=== PATIENT | female | born 1965 | race Caucasian/White ===

== ENCOUNTER 2020-06-12 16:01 | Outpatient (CLI) | payer OTHER, SELFPAY ==
--- NOTE | 2020-06-12 11:15 | DI.RAD_ITS ---
EXAM: XR KNEE RT 2V AP,LAT CLINICAL HISTORY: pain. TECHNIQUE: 2D digital imaging was performed. COMPARISON: No previous for comparison. FINDINGS: BONES: No acute fracture is present. No bony destructive lesion is seen. There is a question of an os teochondroma involving the proximal fibula. JOINTS: The knee is normally aligned. Small joint effusion is present. SOFT TISSUE: Normal. IMPRESSION: No acute abnormality. Small joint effusion. DATA REPOSITORY: RADIATION DOSE DELIVERED:
== END 2020-06-12 16:21 ==
PROVIDERS: PCP Internal Medicine; Visit Provider Orthopaedic Surgery
DX: M25.461 Effusion, right knee (principal); M25.561 Pain in right knee
CPT/HCPCS: 73560

== ENCOUNTER 2021-07-03 09:15 | Outpatient (CLI) | payer OTHER, SELFPAY ==
--- NOTE | 2021-07-03 10:40 | DI.MRI_ITS ---
Exam(s) MR LOWER JOINT RT WO EXAM: MR LOWER JOINT RT WO CLINICAL HISTORY: PAIN, INTERNAL DERANGEMENT RT KNEE, M23.91 TECHNIQUE: Multiplanar multisequence MRI of the knee was performed. COMPARISON: MR MRI L LOWER JOINT WO CONT from 12/14/2013 CR XR KNEE RT 2V AP,LAT from 06/12/2020 FINDINGS: EFFUSION: There is a small joint effusion. There is no Bermudez cyst in the popliteal fossa MARROW:There is no evidence of fracture, prominent bone contusion, nor osteochondral defects.. There are no significant osseous lesions. PATELLOFEMORAL COMPARTMENT: The quadriceps tendon is intact. The patellar ligament is intact. There is mild uniform thinning of the retropatellar cartilage and there is signal abnormality in the retropatellar cartilage inferiorly, more so over the lateral facet. No prominent signal abnormality in the posterior patella.There is no intraosseous signal to suggest recent patellar dislocation. Ther e are no patellar retinacular tears. CRUCIATE LIGAMENTS: The anterior cruciate ligament is intact.The posterior cruciate ligament is intac t. MEDIAL COMPARTMENT/MEDIAL MENISCUS: There is an undersurface tear in the outer 3rd of the posterior h orn of the medial meniscus. There is lateral extrusion of part of the torn meniscus by approximately 3 millimeters. There is, however, no descent into the para tibial gutter. No meniscocapsular separ ation. There are small over and underlying osteophytes in the outer aspects of the medial femoral co ndyle and subjacent tibial plateau. There is some mild-moderate cartilage thinning over this weight- bearing region of the medial femoral condyle. There is very mild subarticular bone edema in the femo ral condyle and subjacent medial tibial plateau. There are no osteochondral defects. The anterior horn of the medial meniscus appears intact. MEDIAL COLLATERAL LIGAMENT: There is thin amount of fluid between the deep and superficial components of the MCL but no high-grade tear of this structure. LATERAL COMPARTMENT/LATERAL MENISCUS: There is mild signal abnormality in the inferior aspect of the root of the posterior horn the lateral meniscus, probably myxoid degeneration (more so than an actual tear at this level). The anterior horn is intact. There is no evidence of meniscal extrusion nor i ntrusion.There are no chondral defects, osteochondral defects, subarticular marrow edema, nor osteoph ytes evident. ILIOTIBIAL BAND: Intact LATERAL COLLATERAL LIGAMENT COMPLEX: The fibular collateral ligament is intact. The biceps femoris t endon is intact.Mild fluid seen within the popliteus tendon sheath but there is no distinct tear of t his component of the LCLC. IMPRESSION: 1. There is a tear of the posterior horn of the medial meniscus as described above. There is an [place] ent of extrusion part of the torn meniscus but without descent into the para meniscal gutter, promine nt meniscocapsular separation, nor evidence of degenerative meniscal cyst formation. There is some o verlying mild-moderate cartilage thinning and very mild subarticular bone edema in the overlying medi al femoral condyle (as well as in the subjacent tibial plateau). There are no osteochondral defects. The anterior horn of the medial meniscus appears intact. Some myxoid degeneration noted at the lev el of the root of the posterior horn of the lateral meniscus but no true lateral meniscal tears nor c hondral defects in the lateral compartment and no subarticular edema nor osteophytes in the lateral c ompartment. 2. The cruciate and collateral ligaments are intact. There is a small amount of fluid in the poplite us tendon sheath but no tear of this tendon. 3. There is thinning of the retropatellar cartilage, more so over the lateral facet. No intraosseous edema seen in the patella. No osteochondral defect evident at this level. 4. Small joint effusion. No Bermudez cyst. DATA REPOSITORY:
== END 2021-07-03 09:35 ==
LOC: DI 09:17
PROVIDERS: PCP Internal Medicine; Visit Provider Student in an Organized Health Care Education/Training Program
DX: M25.561 Pain in right knee (principal); M25.461 Effusion, right knee; S83.241A Other tear of medial meniscus, current injury, right knee, initial encounter; M23.8X1 Other internal derangements of right knee
CPT/HCPCS: 73721

== ENCOUNTER 2021-12-22 09:16 | Day surgery (SDC) | payer OTHER, SELFPAY ==
--- NOTE | 2021-12-22 06:32 | COLE_ITS ---
Colonoscopy Report Date of procedure: 12/22/21 Pre-op diagnosis general: Hx of polyps, Colon Cancer Screening Post-op diagnosis procedure note: other (polyps and diverticulosis) Procedure: Colonoscopy with polypectomy Surgeon: Katey Orozco Anesthesia Type: General:No Airway Estimated blood loss (mL): 3 Pathology: other (ascending colon polyps) Complications: None Disposition: same day Indications: The patient is here for Colonoscopy pre-op. Her last screening was in 2018, which was remarkable for tubulovillious adenoma. She reports a distant family history of colon cancer in her Paternal Grandfather and Paternal Uncle.??She has not had any bowel habit changes. -Discussed colonoscopy bowel prep as well as the procedure. Discussed possible complications of the procedure to include bleeding, pain, perforation, missed small lesion/polyp, sore throat, aspiration and adverse reaction to the medications. Questions were answered to patient?s satisfaction. No guarantees were implied or given.? Prep: Miralax/Dulcolax Procedure Start Time: 10:03 Procedure End Time: 10:25 Retraction Time: 15 minutes Findings: 2 small polyps mild diverticulosis Procedure Description: After informed consent was obtained the patient was taken to the procedure ro om and placed in a left decubitous position. Monitors were applied and a time out was done. The patients name, date of , procedure, allergies to medications and metal in their body was reviewed. The patient was then sedated. Once sedated and comfortable a rectal exam was done. External exam was normal. Internal exam revealed a normal sphincter tone and no palpable masses. The scope was then introduced and retro-flexed. No internal hemorrhoids, polyps or masses were identified on retro-flexion. The scope was then advanced to the cecum without difficulty. The ileocecal vlave and appendiceal orifice were identified. The prep was adequate. The scope was then slowly retracted over 15 minutes back into the rectum. Polyps were removed with cold forceps in the ascending colon x2. There was mild sigmoid diverticulosis noted. The scope was removed and the patient was woken up and taken back to Same day surgery in stable condition. The patient tolerated the procedure well and there were no immediate complications. Follow up: The patient should follow up in 5 years unless they develop changes in bowel habits or other new gastrointestinal complaints.
--- NOTE | 2021-12-22 06:33 | W.PM.DSUDISC ---
Discharge Plan Disposition Patient Disposition: HOME Condition: Good Discharge Details Reason For Visit: colonoscopy Attending Provider: Katey Orozco Primary Care Provider: Nataliia Coyne Home Meds and New Rx's Prescriptions: Continued albuterol sulfate [ProAir HFA] 90 mcg/actuation HFA aerosol inhaler 2 puff Inhalation Q4H PRN 30 Days Qty: 2 6RF Hold Instructions: Home Medication placed on hold at Doctor's office Rx Instructions: Changed from xopenex due to insurance formulary fluticasone propion-salmeterol [Advair Diskus] 250-50 mcg/dose blister with device 1 ea Inhalation BID Qty: 3 3RF Hold Instructions: Home Medication placed on hold at Doctor's office mometasone [Nasonex] 50 mcg/actuation spray,non-aerosol 2 spray NS BID Qty: 3 3RF Hold Instructions: Home Medication placed on hold at Doctor's office montelukast [Singulair] 10 mg tablet 10 mg PO DAILY Qty: 90 3RF Hold Instructions: Home Medication placed on hold at Doctor's office desloratadine [Clarinex] 5 mg tablet 5 mg PO DAILY PRN (Reason: allergies) Qty: 30 11RF budesonide-formoterol [Symbicort] 80-4.5 mcg/actuation HFA aerosol inhaler 2 puff inhalation BID Qty: 3 3RF melatonin 3 mg tablet 3 mg PO HS 0RF mylanta suspension PO PRN0RF naproxen sodium [Aleve] 220 MG tablet 220 mg PO DAILY PRN0RF Rx Instructions: for knee pain 1-2 x's weekly cgc Discontinued polyethylene glycol 3350 17 gram/dose powder 238 g PO ONCE Qty: 238 0RF Rx Instructions: take per colonoscopy instructions bisacodyl [Dulcolax (bisacodyl)] 5 mg tablet,delayed release (DR/EC) 5 mg PO ONCE Qty: 4 0RF Rx Instructions: take per colonoscopy instructions Discharge Instructions Instructions: Colorectal Polyps (DC), Diverticulosis (DC) Additional Instructions: Findings: 2 small polyps diverticulosis Follow up: 5 years Please call if you develop: fevers >101.5 Nausea or Vomiting Abdominal pain that is not transient Rectal bleeding that is more then a tbsp A hard abdomen and inability to pass gas DAY SURGERY UNIT POST ENDOSCOPY INSTRUCTIONS Instructions for everyone who is given Anesthesia: For your safety, please do the following for the next 24 Hours: a. Do not drive or operate dangerous equipment b. Do not drink alcohol beverages or use any recreational drugs for the first 24 hours or while taking pain medications. The medications in your body may have a reaction that can be dangerous. c. Do not make any important decisions or sign any important papers 1. Generally there are no restrictions on your activity after a day or so has gone by, but you may feel a bit fatigued for a few days. 2. After you arrive home you may have a light meal and return to a normal diet as you can tolerate it without feeling sick to your stomach. 3. After surgery, you may feel pain or discomfort. This should be only transient, but if it persists please contact your doctor. 4. If there are any questions regarding the findings of your procedure, please feel free to contact your doctor. 6. If you are unable to contact your doctor with a problem, contact the hospital at [phone]. 7. Continue all your regular medications unless directed otherwise. I understand the above instructions and have no questions. Signature of Patient or Responsible Adult Escort Date/Time Name of Responsible Adult Escort Signature of Nurse Date/Time Activity:: Activity as Tolerated Diet:: high fiber diet Discharge Orders Discharge Orders: Discharge Order (Routine); Ordered 12/22/21 Ordered By: Katey Orozco
[2021-12-22 09:27] VITALS: BP 137/93; PULSE 77; RESP 18; TEMP 36.6; O2SAT 95
[2021-12-22] MEDS: Lactated Ringers 1,000 ML 80 ML IV (09:34)
[2021-12-22 09:43] VITALS: BMI 43.5
--- NOTE | 2021-12-22 09:43 | W.ANESPRE ---
General Info Date of Service Date Performed: 12/22/21 Height: 5 ft 6.14 in Weight: 122.9 kg Body Mass Index (BMI): 43.5 Surgical Procedure: Operation Date: 12/22/21 09:50 Proposed Procedure Side Surgeon p Colonoscopy Katey Orozco MD Meds Allergies and Home Medications Allergies Allergy/AdvReac Type Severity Reaction Status Date / Time ropinirole AdvReac Intermediate Nausea Verified 12/22/21 09:23 hydrocodone [Hydrocodone] AdvReac Unknown itching Verified 12/22/21 09:23 Home Medication Medication Instructions Recorded naproxen sodium 220 mg tablet 220 mg PO DAILY PRN 11/20/13 (Aleve) melatonin 3 mg tablet 3 mg PO HS 05/13/21 mylanta PO PRN 05/13/21 albuterol sulfate 90 mcg/actuation 2 puff INHALATION Q4H PRN 30 Days 05/21/21 aerosol inhaler (ProAir HFA) #2 inhaler budesonide-formoterol HFA 80 2 puff INHALATION BID #3 units 05/21/21 mcg-4.5 mcg/actuation aerosol inhaler (Symbicort) desloratadine 5 mg tablet 5 mg PO DAILY PRN #30 tab 05/21/21 (Clarinex) fluticasone 250 mcg-salmeterol 50 1 ea INHALATION BID #3 units 05/21/21 mcg/dose blistr powdr for inhalation (Advair Diskus) mometasone 50 mcg/actuation nasal 2 spray NS BID #3 units 05/21/21 spray (Nasonex) montelukast 10 mg tablet 10 mg PO DAILY #90 tab 05/21/21 (Singulair) bisacodyl 5 mg tablet,delayed 5 mg PO ONCE #4 tab 12/12/21 release (Dulcolax (bisacodyl)) polyethylene glycol 3350 17 238 g PO ONCE #238 g 12/12/21 gram/dose oral powder Current Visit Medications: Current Medications Generic Name Dose Route Start Last Admin Trade Name Freq PRN Reason Stop Dose Admin Hyoscyamine Sulfate 0.125 mg 12/22/21 06:34 Hyoscyamine 0.125 Mg Sl/Oral/Chew SL DIRECTED PRN Ringer's Solution 1,000 mls @ 80 mls/hr 12/22/21 06:00 12/22/21 09:34 IV 01/18/22 23:59 80 mls/hr INFUSION PALAK Administration IV Miscellaneous Supplies 1 each 12/22/21 06:00 Iv Access IV 01/18/22 23:59 DIRECTED PALAK Ondansetron HCl 4 mg 12/22/21 06:34 Ondansetron 4 Mg/2 Ml Vial IVP Q4H PRN PRN Nausea / Vomiting Sodium Chloride 0 ml 12/22/21 06:00 Normal Saline Flush 10 Ml Syr IV 01/18/22 23:59 PRN PRN Sodium Chloride 0 ml 12/22/21 06:00 Normal Saline 10 Ml Vial IJ 01/18/22 23:59 DIRECTED PRN Sterile Water 0 ml 12/22/21 06:00 Water,Injection,Sterile 10 Ml Vial IJ 01/18/22 23:59 DIRECTED PRN PFSH Active Problems Active Problems: Problem Status Onset Code Asthma 12/20/12 J45.909 Family history of diabetes mellitus 09/25/15 Z83.3 Impaired fasting blood sugar 09/25/15 R73.01 Iron deficiency 09/25/15 E61.1 Non-seasonal allergic rhinitis 01/19/18 J30.89 Obesity 08/29/13 E66.9 Obstructive sleep apnea syndrome 08/29/13 G47.33 Restless legs 01/02/14 G25.81 Tubulovillous adenoma of colon 04/08/18 D12.6 Knee pain, right M25.561 Elevated blood pressure reading without diagnosis of hypertension R03.0 Internal derangement of right knee M23.91 Complex tear of medial meniscus of right knee as current injury S83.231A Medical History Medical History Asthma Iron deficiency Non-seasonal allergic rhinitis Obesity (BMI 30-39.9) GEETHA (obstructive sleep apnea) Restless legs Surgical History Surgical History Colonoscopy - [facility] (04/08/18) H/O arthroscopic knee surgery Tobacco Smoking/Tobacco Use Status: Never Second hand exposure: No Alcohol Alcohol Intake: current Alcohol intake frequency: holidays/special occasions only Alcohol type: wine Substance Use Substance use: Never Vital Signs and Lab Results Vital Signs Most Recent Vital Signs in EMR: Most Recent Vital Signs Temp Pulse Resp BP Pulse Ox 36.6 C 77 18 137/93 H 95 12/22/21 09:27 12/22/21 09:27 12/22/21 09:27 12/22/21 09:27 12/22/21 09:27 Lab Results Blood Type / Crossmatch: No Data to Display Complete Blood Count: No Data to Display Complete Metabolic Panel: No Data to Display Liver Function Panel: No Data to Display Coagulation Panel: No Data to Display Cardiac Panel: No Data to Display Arterial Blood Gas: No Data to Display Venous Blood Gas: No Data to Display Pancreas Panel: No Data to Display Thyroid Panel: No Data to Display Infectious Disease: No Data to Display Blood Cultures: No Data to Display Toxicology Panel: No Data to Display Anesthesia Assessment and Plan Anesthesia History Personal History: No History of Anesthesia Complications Family History: No Family History of Anesthesia Complications Exercise Tolerance Exercise Tolerance: Metabolic Equivalents>4 Pertinent Negatives Pertinent Negatives: No Symptoms of GERD, No Major Cardiovascular Symptoms or Complaints and No History of CVA/TIA Cardiac & Pulmonary Exam Cardiac Exam: Normal S1/S2 Heart Sounds Pulmonary Exam: Clear Bilateral Breath Sounds Cardiac and Pulmonary Comment:: Has not used rescue inhaler in 2-3 months. Mainly for exercise. GEETHA: elevates bed about 3inches per patient and states does not use or need CPAP Implantable Cardiac Device Does patient have a Pacemaker or an ICD?: No Airway Exam Known Difficult Airway: No Mallampati Class: 3 Mouth Opening: Normal (> 3cm) Thyromental Distance: Greater than 3 cm Neck Range of Motion: Full ROM Neck Circumference: Normal Teeth Condition: Normal Dentition ASA Classification ASA Score: ASA 3 Emergency Case?: No NPO Status NPO Status: NPO Clears >2 hours, Solids >8 hours Anesthesia Plan Resuscitation Status: Full Code Anesthesia Technique: General Anesthesia Airway Planned: Natural Airway Monitors Used: Standard Monitors
--- NOTE | 2021-12-22 10:12 | BOWEL_PTH ---
PATIENT: Trish Conroy LOC: [facility] U#:[id number] AGE/SX: 56/F ROOM: RE12/22/[address]: Katey Orozco MD : [id number] BED: DIS: 12/22/2021 SPEC #: [id number] RECD: 12/22/21 12:57 STATUS: SUMAN REQ #: [id number] RAY: 12/22/21 10:[address]: Katey Orozco DEPT: Surgical Specimen RECD BY: Madisyn Saul ENTERED: 12/22/21 12:57 SP TYPE: Bowel OTHR DR: Nataliia Coyne MD Tissues: 1 - BIOPSY BOWEL Procedures: GROSS AND MICRO LEVEL 4 Comments: [id number]
[2021-12-22 10:46] VITALS: BP 119/76; PULSE 76; RESP 17; TEMP 36.6; O2SAT 94
[2021-12-22 10:56] VITALS: BP 132/88; PULSE 73; RESP 17; TEMP 36.3; O2SAT 95
--- NOTE | 2021-12-22 13:37 | W.ANESPOSTOP ---
Postoperative Evaluation Date, Time and Location Date Performed: 12/22/21 Time Performed: 10:35 Patient Location: Day Surgery Unit Vital Signs Most Recent Imported Vital Signs: Most Recent Vital Signs Temp Pulse Resp BP Pulse Ox 36.3 C L 73 17 132/88 95 12/22/21 10:56 12/22/21 10:56 12/22/21 10:56 12/22/21 10:56 12/22/21 10:56 Pain Score Most Recent Pain Score: Most Recent Pain Score Pain Level 0 12/22/21 10:56 Assessment Mental Status: Awake (Alert & Oriented to Patient Baseline) Airway and Respiratory Function: Patent airway with normal (patient baseline) respiratory exam Cardiovascular Function: Hemodynamically Stable Hydration Status: Adequately Hydrated Nausea & Vomiting: No Nausea or Vomiting Pain: Pt. Denies Any Pain Peripheral Nerve Block: Patient did not receive a nerve block
== END 2021-12-22 11:11 | disposition home or self-care (01) ==
LOC: SUR 09:16
PROVIDERS: PCP Internal Medicine; Visit Provider Surgery
PROC: 0DJD8ZZ Inspection of Lower Intestinal Tract, Via Natural or Artificial Opening Endoscopic (ICD-10-PCS; CPT 45378; principal; 2021-12-22 09:45)
DX: Z12.11 Encounter for screening for malignant neoplasm of colon (principal); K63.5 Polyp of colon; K57.30 Diverticulosis of large intestine without perforation or abscess without bleeding; J45.909 Unspecified asthma, uncomplicated; G47.33 Obstructive sleep apnea (adult) (pediatric)
CPT/HCPCS: 45380; 88305; J2001

== ENCOUNTER 2022-02-27 16:19 | Outpatient (CLI) | payer OTHER, SELFPAY ==
[2022-02-27 16:55] LABS: Anion Gap 6.6 mmol/L (3-11); BUN 15 mg/dL (7-18); CO2 27.4 mmol/L (21.0-32.0); CREATININE 0.7 mg/dL (0.55-1.02); Calcium 8.4 mg/dL (8.5-10.1); Chloride 107 mmol/L (98-107); Glucose 125 mg/dL (74-106); Potassium 3.5 mmol/L (3.5-5.1); Sodium 141 mmol/L (136-145)
== END 2022-02-27 16:20 | disposition home or self-care (01) ==
LOC: LBO 16:19
PROVIDERS: PCP Internal Medicine; Visit Provider Student in an Organized Health Care Education/Training Program
DX: U07.1 COVID-19 (principal)
CPT/HCPCS: 36415; 80048

== ENCOUNTER → 2023-07-13 00:44 | Outpatient (CLI) | payer BC, SELFPAY ==
--- NOTE | 2023-07-13 08:15 | DI.RAD_ITS ---
Exam(s) XR SHOULDER LT COMPLETE 2+V EXAM: XR SHOULDER LT COMPLETE 2+V CLINICAL HISTORY: ? SHOULDER ARTHRITIS, DELTOID BURSITIS, M75.50. TECHNIQUE: 2D digital imaging was performed. Three views. COMPARISON: No exams were available for comparison FINDINGS: BONES: No acute fracture is present. No bony destructive lesion is seen. JOINTS: No dislocation present. Minimal spurring at acromion. Mild spurring at the glenoid and jaqueline ral head. Glenohumeral joint space is maintained. SOFT TISSUE: No tendon or joint space calcifications. IMPRESSION: mild degenerative changes. DATA REPOSITORY: RADIATION DOSE DELIVERED:
== END ==
PROVIDERS: PCP Family Medicine; Visit Provider Family Medicine
DX: M75.52 Bursitis of left shoulder (principal)
CPT/HCPCS: 73030

== ENCOUNTER 2024-01-13 05:11 | Outpatient (CLI) | payer BC, SELFPAY ==
[2024-01-13 07:50] LABS: ALT 34 U/L (14-59); AST 12 U/L (15-37); Albumin 3.6 g/dL (3.4-5.0); Alkaline Phosphatase 68 U/L (46-116); Anion Gap 8.4 mmol/L (3-11); BUN 20 mg/dL (7-18); Bilirubin, Total 0.5 mg/dL (0.2-1.0); CO2 25.6 mmol/L (21.0-32.0); CREATININE 0.8 mg/dL (0.55-1.02); Calcium 8.6 mg/dL (8.5-10.1); Calculated LDL 145 mg/dL (<100); Chloride 106 mmol/L (98-107); Cholesterol 233 mg/dL (<200); Estimated GFR 85.89 (mL/min/1.73m2); Glucose 104 mg/dL (74-106); HDL Cholesterol 61 mg/dL (40-60); Potassium 3.8 mmol/L (3.5-5.1); Sodium 140 mmol/L (136-145); Total Protein 6.9 g/dL (6.4-8.2); Triglyceride 139 mg/dL (<150)
[2024-01-13 21:36] LABS: Hepatitis C Ab w Rflx HCV PCR Negative (Negative)
[2024-01-13 21:40] LABS: HIV-1/2 Ag & Ab Screen Negative (Negative)
== END 2024-01-13 05:12 | disposition home or self-care (01) ==
LOC: LBO 05:11
PROVIDERS: Absent Provider Family Medicine; PCP Family Medicine; Referring Provider Family Medicine; Visit Provider Family Medicine
DX: I10 Essential (primary) hypertension (principal); Z11.3 Encounter for screening for infections with a predominantly sexual mode of transmission
CPT/HCPCS: 36415; 80053; 80061; 86803; 87389

== ENCOUNTER 2024-01-18 15:49 | Outpatient (CLI) | payer BC, SELFPAY ==
--- NOTE | 2024-01-18 14:30 | DI.RAD_ITS ---
Exam(s) XR HUMERUS LT EXAM: XR HUMERUS LT CLINICAL HISTORY: persistent pain. TECHNIQUE: 2D digital imaging was performed. Two views. COMPARISON: CR XR SHOULDER LT COMPLETE 2+V from 07/13/2023 FINDINGS: BONES: No acute fracture is present. No bony destructive lesion is seen. Bones appear normally clothing examiner alized. Joints: Stable degenerative changes at the AC joint and glenohumeral joint. The elbow is unremarkabl e. SOFT TISSUE: Normal. IMPRESSION: Stable degenerative changes of the AC joint and glenohumeral joint. DATA REPOSITORY: RADIATION DOSE DELIVERED:
== END 2024-01-18 15:50 | disposition home or self-care (01) ==
LOC: DIORS 15:50
PROVIDERS: PCP Family Medicine; Visit Provider Student in an Organized Health Care Education/Training Program
DX: M79.602 Pain in left arm (principal)
CPT/HCPCS: 73060

== ENCOUNTER → 2024-02-07 02:03 | Outpatient (CLI) | payer BC, SELFPAY ==
--- NOTE | 2024-02-07 07:00 | DI.MRI_ITS ---
Exam(s) MR UPPER EXTREMITY LT WO EXAM: MR UPPER EXTREMITY LT WO CLINICAL HISTORY: trigger point L humerus,lt arm pain,M79.602 TECHNIQUE: Multiplanar multisequence MRI was performed. COMPARISON: CR XR HUMERUS LT from 01/18/2024 FINDINGS: MARROW:There is no evidence of fracture, bone contusion, nor significant bone lesions in the left hum erus. ARTICULATIONS: There are degenerative changes in the left glenohumeral joint and in addition to a maria de jesus nt effusion there are multiple loose calcified bodies noted within the inferior recess. Also humeral head osteophyte on the inferior articular surface noted. There are no degenerative subarticular cys ts in the glenohumeral joint. MUSCLES: There is some fluid in the long head biceps tendon sheath within the intertubercular groove. This is probably continuation of the glenohumeral joint effusion. There does not appear to be an o bvious tear of the long head biceps tendon. There is no abnormal intramuscular signal within the musculature of the arm above the elbow level. N o myositis signal. No masses. No abnormal fluid collections. EXTRAMUSCULAR SOFT TISSUES: No abnormal signal, mass, or fluid collection in the subcutaneous and dulce p subcutaneous fat nor within the intermuscular planes.. OTHER: None. IMPRESSION: 1. No evidence of intrinsic signal abnormality in the left humerus. 2. There are moderate degenerative changes in the glenohumeral joint and there is also a glenohumeral joint effusion and multiple small loose bodies, predominately within the inferior recess. There is also a moderate size osteophyte on the inferior articular surface of the humeral head. 3. There is fluid in the long head biceps tendon sheath. This is probably continuation of the fluid within the glenohumeral joint space. There are no loose bodies within the biceps tendon sheath. DATA REPOSITORY:
== END ==
PROVIDERS: PCP Family Medicine; Visit Provider Student in an Organized Health Care Education/Training Program
DX: M79.602 Pain in left arm (principal)
CPT/HCPCS: 73218

== ENCOUNTER 2024-06-11 22:05 | Observation (INO) | payer BC, SELFPAY ==
[2024-06-11] VITALS (15 sets, daily range): BP systolic 81–141; BP diastolic 48–72; PULSE 63–162; RESP 7–16; TEMP 35.9; O2SAT 92–99
--- NOTE | 2024-06-11 22:15 | RT.EKG_ITS ---
APPROVED REPORT Exam: Resting ECG Reason for Exam: weakness Patient Location: E HR:66 bpm ECG Measurements Heart Rate 66 AXIS WA 172 P 74 QRSd 95 QRS -44 QT 468 T 48 QTc 492 Conclusion Sinus rhythm...normal P axis, V-rate 60- 99 Left axis deviation...QRS axis (-30,-90) Sinus rhythm left axis normal intervals no acute ischemic changes
--- NOTE | 2024-06-11 22:15 | DI.CT_ITS ---
Exam(s) CT ABDOMEN PELVIS CTA EXAM: CT ABDOMEN PELVIS CTA CLINICAL HISTORY: diffuse abd pain, vol guarding. TECHNIQUE: Imaging Protocol: Axial CT angiography was performed with multi-slice acquisition and m ulti-planar and/or 3D reconstructions. CONTRAST MATERIAL: Intravenous: Omnipaque 350 Contrast volume:100mL Oral: No COMPARISON: No exams were available for comparison FINDINGS: ABDOMEN AND PELVIS: Abdomen: Celiac axis/mesenteric arteries: No evidence of occlusion or significant stenosis. Renal Arteries: No evidence of occlusion or significant stenosis. Aorta: No evidence of occlusion or significant stenosis. No aneurysm or dissection. Pelvis: Iliac Arteries: No evidence of occlusion or significant stenosis. Common Femoral Arteries: No evidence of occlusion or significant stenosis. ABDOMEN: Lung bases: Atelectasis is seen in the lung bases. Liver: Normal density. There is a small cysts seen in the liver adjacent to the gallbladder fossa. N o suspicious hepatic masses are seen. Portal, Superior Mesenteric, and Splenic Veins: Unremarkable. Gallbladder and Biliary Tract: No radiodense calculus or dilation. Pancreas: Normal density, no abnormal calcifications or inflammatory process. Spleen: Normal. Adrenals: No masses seen. Kidneys: Normal size, contour and axis. No radiodense stones or obstructive uropathy. There are bilat eral parapelvic cysts. No suspicious solid renal masses. No follow-up is recommended. Bowel: No evidence of bowel obstruction. There is mild bowel wall thickening seen in the transverse colon. This may be due to underdistention. Non-specific colitis cannot be excluded. Appendix is un remarkable. Peritoneal Cavity: No ascites, collection or mesenteric inflammatory response. No free air. Lymph Nodes: Within normal limits. Bones: Within normal limits for the patient's age. Soft Tissues: Unremarkable. PELVIS: Bladder: Symmetric distention, no gross wall thickening. Reproductive Organs: Unremarkable as visualized. Lymph Nodes: Within normal limits. Bones: Within normal limits. IMPRESSION: 1. Unremarkable CT angiography of the abdomen and pelvis. 2. Mild bowel wall thickening seen in the transverse colon. This may be due to underdistention. Non specific colitis cannot be excluded. No evidence of bowel obstruction. RADIATION DOSE DELIVERED: 1,187.65mGy.cm Total DLP DATA REPOSITORY: All CT scans at this facility are submitted to the National Radiology Data Registry (NRDR) Dose Index Registry (DIR) with the [employer] (A[employer]). RADIATION OPTIMIZATION: All CT scans at this facility use at least one of these dose optimization te chniques: automated exposure control; mA and/or kV adjustment per patient size (includes targeted exa ms where dose is matched to clinical indication); or iterative reconstruction.
[2024-06-11] MEDS: Normal Saline 1,000 ML 1000 ML IV (22:45)
[2024-06-11] MEDS: ACETAMINOPHEN 1,000 MG/100 ML BAG 400 MG IVPB (22:45)
[2024-06-11] MEDS: Ondansetron 4 MG/2 ML VIAL IVP (22:45)
[2024-06-11 22:48] LABS: Abs Immature Grans 0.02 10^3/uL (0.0-0.06); Absolute Basophil Count 0.01 10^3/uL (0.0-0.2); Absolute Eosinophil Count 0.04 10^3/uL (0.0-0.7); Absolute Lymphocyte Count 4.18 10^3/uL (1.2-3.4); Absolute Monocyte Count 0.36 10^3/uL (0.1-0.8); Basophils % 0.1 %; Eosinophils % 0.4 %; HGB 15.3 g/dL (11.2-15.7); Immature Grans % 0.2 %; Lymphocytes % 44.4 %; MCH 29.9 pg (27.0-33.0); MCHC 33.3 % (32.0-36.0); MCV 90 fL (80-95); MPV 11.6 fL (8.0-11.0); Monocytes % 3.8 %; Neutrophils % 51.1 %; Platelet Count 197 10^3/uL (130-400); RBC 5.12 10^6/uL (3.93-5.22); RDW 13.6 % (11.7-14.6); RDW-SD 44.8 fL; WBC 9.41 10^3/uL (4.4-10.8)
[2024-06-11 22:53] LABS: Lactate 2.92 mmol/L (0.9-1.7)
[2024-06-11 23:12] LABS: ALT 27 U/L (14-59); AST 15 U/L (15-37); Albumin 3.6 g/dL (3.4-5.0); Alkaline Phosphatase 72 U/L (46-116); Anion Gap 14.5 mmol/L (3-11); BUN 20 mg/dL (7-18); CO2 24.5 mmol/L (21.0-32.0); CREATININE 1.2 mg/dL (0.55-1.02); Calcium 9.2 mg/dL (8.5-10.1); Chloride 108 mmol/L (98-107); Estimated GFR 52.47 (mL/min/1.73m2); Glucose 204 mg/dL (74-106); Lipase 54 U/L (16-77); Sodium 147 mmol/L (136-145); Total Protein 6.8 g/dL (6.4-8.2); Troponin I 10 ng/L (<or=51)
--- NOTE | 2024-06-11 23:12 | W.ED.GENAD ---
Discharge Plan Disposition Patient Disposition: Admit to [facility] Condition: Improving Discharge Details Chief Complaint: Nausea/Vomit/Diar Clinical Impression: Acute non-ST elevation myocardial infarction (NSTEMI), Colitis, Hypokalemia, Lactate blood increase Primary Care Provider: Sam Goodson ED Provider: Florecita Alaniz Home Meds and New Rx's Prescriptions: No Action atorvastatin 20 mg tablet 20 mg PO QHS Qty: 90 3RF Wegovy 0.25 mg/0.5 mL pen injector 0.25 mg subcut QWEEK Qty: 2 0RF Rx Instructions: administer weeks 1 through 4 of therapy melatonin 3 mg tablet 3 mg PO HS mometasone 50 mcg/actuation spray,non-aerosol 2 spray NS BID Qty: 3 3RF naproxen sodium [Aleve] 220 MG tablet 220 mg PO DAILY PRN Rx Instructions: for knee pain 1-2 x's weekly cgc albuterol sulfate 90 mcg/actuation HFA aerosol inhaler 2 puff inhalation Q6H PRN (Reason: shortness of breath or wheezing) Qty: 8.5 3RF losartan 50 mg tablet 50 mg PO DAILY Qty: 90 3RF HPI General Mode of arrival: EMS. Date/Time Provider Initiated Documentation: 06/11/24 22:11. Limitations to Documentation: no limitations. Information obtained by: patient and EMS. HPI Narrative: 59yo F with hx HTN, HLD, asthma, GEETHA, presenting with acute abdominal pain, nausea, and vomiting starting 1 hour prior to arrival. Pain is diffuse, moderate, crampy, and feels like I have to have diarrhea. Has had 2 episodes of nonbloody nonbilious emesis and 2 episodes of nonbloody diarrhea. Similar episode of N/V about three weeks ago but today is worse. Feels dizzy and 'weak all over'. No chest pain, shortness of breath, dysuria, hematuria, focal weakness, numbness, vertigo, or headache. No fevers or chills. Otherwise in her usual state of health and felt normal earlier today, eating and drinking normally. Related Data Home Medications ?Medication ?Instructions ?Recorded ?Confirmed naproxen sodium 220 mg tablet 220 mg PO DAILY PRN 11/20/13 06/11/24 (Aleve) melatonin 3 mg tablet 3 mg PO HS 05/13/21 06/11/24 mometasone 50 mcg/actuation nasal 2 spray NS BID #3 multiple units 09/20/23 06/11/24 spray albuterol sulfate 90 mcg/actuation 2 puff inhalation Q6H PRN 10/18/23 06/11/24 aerosol inhaler shortness of breath or wheezing #8.5 grams atorvastatin 20 mg tablet 20 mg PO QHS #90 tabs 01/20/24 06/11/24 semaglutide (weight loss) 0.25 0.25 mg (0.5 mL) subcut QWEEK #2 mL 01/20/24 06/11/24 mg/0.5 mL subcutaneous pen injector (Wegovy) losartan 50 mg tablet 50 mg PO DAILY #90 tabs 04/17/24 06/11/24 Previous Rx's ?Medication ?Instructions ?Recorded mometasone 50 mcg/actuation nasal 2 spray NS BID #3 multiple units 09/20/23 spray albuterol sulfate 90 mcg/actuation 2 puff inhalation Q6H PRN 10/18/23 aerosol inhaler shortness of breath or wheezing #8.5 grams atorvastatin 20 mg tablet 20 mg PO QHS #90 tabs 01/20/24 semaglutide (weight loss) 0.25 0.25 mg (0.5 mL) subcut QWEEK #2 mL 01/20/24 mg/0.5 mL subcutaneous pen injector (Wegovy) losartan 50 mg tablet 50 mg PO DAILY #90 tabs 04/17/24 Allergies Allergy/AdvReac Type Severity Reaction Status Date / Time ropinirole AdvReac Intermediate Nausea Verified 06/11/24 22:20 hydrocodone (Hydrocodone) AdvReac Unknown itching Verified 06/11/24 22:20 General Stated Complaint: Nausea/Vomit/Diar KM: 3 Review of Systems Narrative: see HPI Exam Narrative Exam Narrative: General: Alert, well nourished, eyes closed, holding emesis bag Head: Normocephalic, atraumatic Neck: Trachea midline, ?Neck supple. ENT: ?MMM.? No oropharygeal lesions or exudate. Cardiac: ?RRR, no murmurs appreciated Resp: No respiratory distress. CTAB. Abd: ?Soft, non-distended, diffusely tender to palpation wtih voluntary guarding, no focal tenderness, no involuntary guarding or rebound tenderness : ?No suprapubic tenderness. No CVA tenderness. Extremities: ?No deformities.? No peripheral edema. Neurologic: GCS 15. ? Moves all extremities freely against gravity Course Vital Signs Vital signs: Vital Signs Temperature 35.9 C L 06/11/24 22:12 Pulse 72 06/11/24 22:12 Respiratory Rate 16 06/11/24 22:12 Blood Pressure 81/65 L 06/11/24 22:12 Pulse Oximetry 92 06/11/24 22:12 Temperature 35.9 C L 06/11/24 22:12 Temperature Source Temporal Artery Scan 06/11/24 22:12 Pulse 65 06/11/24 22:31 Pulse 67 06/11/24 22:40 Respiratory Rate 10 L 06/11/24 22:40 Respiratory Effort Normal, Non-Labored 06/11/24 22:22 Blood Pressure 99/49 L 06/11/24 22:31 Blood Pressure Mean 65 06/11/24 22:31 Blood Pressure Position Supine 06/11/24 22:12 Pulse Oximetry 98 06/11/24 22:40 Oxygen Delivery Method Room Air 06/11/24 22:12 Oxygen Flow Rate 0 06/11/24 22:12 Lab/Test Results Lab/Test Results: Laboratory Tests Range/Units 06/11/24 22:40 WBC (4.4-10.8) 10^3/uL 9.41 RBC (3.93-5.22) 10^6/uL 5.12 Hgb (11.2-15.7) g/dL 15.3 Hct (36.0-46.0) % 46.0 MCV (80-95) fL 90 MCH (27.0-33.0) pg 29.9 MCHC (32.0-36.0) % 33.3 RDW (11.7-14.6) % 13.6 Plt Count (130-400) 10^3/uL 197 MPV (8.0-11.0) fL 11.6 H Immature Gran % % 0.2 Neutrophils % % 51.1 Lymphocytes % % 44.4 Monocytes % % 3.8 Eosinophils % % 0.4 Basophils % % 0.1 Nucleated RBC % (0.0-0.3) % 0.0 Absolute Neutrophils (1.2-6.7) 10^3/uL 4.80 Absolute Lymphocytes (1.2-3.4) 10^3/uL 4.18 H Absolute Monocytes (0.1-0.8) 10^3/uL 0.36 Absolute Eosinophils (0.0-0.7) 10^3/uL 0.04 Absolute Basophils (0.0-0.2) 10^3/uL 0.01 VBG Lactate (0.9-1.7) mmol/L 2.92 H* Medical Decision Making 59yo F with hx HTN, HLD, asthma, GEETHA, presenting with acute abdominal pain, nausea, and vomiting starting 1 hour prior to arrival. Pain is diffuse, moderate, crampy, and feels like I have to have diarrhea, 2 episodes each of nonbloody emesis and diarrhea. Lightheaded on arrival, clutching emesis bag, BP soft though maintaining MAP > 65. Abdomen diffusely tender with no involuntary guarding or rebound. Broad differential; primary GI, surgical abdomen, cardiac, etc. Not overtly septic. Plan for labs, CTA for mesenteric ischemia/other intraabdominal/pelvic pathology. Will treat initially wtih IV tylenol, zofran, 1L IVFB. -EKG NSR, appropriate intervals, no ST segment or T wave abnormalities to suggest occlusive WI. -Labs reviewed as below: -CBC reassuring with no leukocytosis or anemia, -CMP with no acidosis, does have marked hypokalemia at 2.7 (IV and PO replacement ordered) and elevated Cr from baseline (1.2 from 0.8 on most recent prior [facility] record review) -Mg normal, lipase normal (unlikely pancreatitis), ETOH negative, lactate elevated at 2.9 (will repeat after IVF resus), initial HS troponin 10 CT independently reviewed; no obstruction or free fluid on my view, radiology read below consistent with colitis with mesenteric vessels patent. On reassessment she reports feeling better, nausea improved, no longer feels dizzy. BP responded well to fluids, no further hypotension. Repeat lactate after 1L IVFB improrved to 2.22; will give additional liter IVF and recheck again. 1 hour troponin 27 (delta 17); 3 hour troponin continues to rise now 90; suspect [id number] in the setting of colitis and volume depletion. Repeat EKG reassuring with no acute ischemic changes. No indication for heparin at this time. Repeat BMP with K improved to 4.0, lactate essentially unchanged at 2.25. Discussed with [facility] hospitalist Dr. Nieves and pt accepted to medicine service under observation status for further workup and management. Bridging orders including admission, code status, and diet placed at his request. Awaiting transfer to the floor. Imaging Data Radiologic Study: Imaging: CT Scan Radiologist's impression: IMPRESSION: 1. No abdominal aortic aneurysm or dissection. 2. Colon almost completely evacuated of formed fecal material and partially collapsed. Fluid throughout the colon suggesting diarrhea. Apparent mural thickening through much of the collapsed colon. Extensive acute colitis is suspected. Artifact of incomplete distension could have a similar appearance. Clinical correlation is recommended. If there is clinical concern for colitis, infectious, inflammatory, or ischemic etiologies would be considered. Lab Data Lab results reviewed: Yes I reviewed the patient's lab results. Labs: Laboratory Tests Range/Units 06/11/24 06/11/24 06/12/24 22:40 23:35 01:28 WBC (4.4-10.8) 10^3/uL 9.41 RBC (3.93-5.22) 10^6/uL 5.12 Hgb (11.2-15.7) g/dL 15.3 Hct (36.0-46.0) % 46.0 MCV (80-95) fL 90 MCH (27.0-33.0) pg 29.9 MCHC (32.0-36.0) % 33.3 RDW (11.7-14.6) % 13.6 Plt Count (130-400) 10^3/uL 197 MPV (8.0-11.0) fL 11.6 H Immature Gran % % 0.2 Neutrophils % % 51.1 Lymphocytes % % 44.4 Monocytes % % 3.8 Eosinophils % % 0.4 Basophils % % 0.1 Nucleated RBC % (0.0-0.3) % 0.0 Absolute Neutrophils (1.2-6.7) 10^3/uL 4.80 Absolute Lymphocytes (1.2-3.4) 10^3/uL 4.18 H Absolute Monocytes (0.1-0.8) 10^3/uL 0.36 Absolute Eosinophils (0.0-0.7) 10^3/uL 0.04 Absolute Basophils (0.0-0.2) 10^3/uL 0.01 VBG Lactate (0.9-1.7) mmol/L 2.92 H* 2.22 H* 2.25 H* Sodium (136-145) mmol/L 147 H Potassium (3.5-5.1) mmol/L 2.7 L* Chloride (98-107) mmol/L 108 H Carbon Dioxide (21.0-32.0) mmol/L 24.5 Anion Gap (3-11) mmol/L 14.5 H BUN (7-18) mg/dL 20 H Creatinine (0.55-1.02) mg/dL 1.2 H Est GFR (CKD-EPI 2020) (mL/min/1.73m2) 52.47 Glucose (74-106) mg/dL 204 H Calcium (8.5-10.1) mg/dL 9.2 Magnesium (1.8-2.4) mg/dL 2.0 Total Bilirubin (0.2-1.0) mg/dL 0.60 AST (15-37) U/L 15 ALT (14-59) U/L 27 Alkaline Phosphatase (46-116) U/L 72 Troponin I (<or=51) ng/L 10 27 90 H* Total Protein (6.4-8.2) g/dL 6.8 Albumin (3.4-5.0) g/dL 3.6 Lipase (16-77) U/L 54 Urine Color (Yellow) Urine Clarity (Clear) Urine pH (5-8) Ur Specific Lincoln (1.005-1.025) Urine Protein (Neg-Trace) mg/dL Urine Ketones (Negative) mg/dL Urine Blood (Negative) Urine Nitrite (Negative) Urine Bilirubin (Negative) Urine Urobilinogen (Up to 0.2) mg/dL Ur Leukocyte Esterase (Negative) Urine Glucose (Negative) mg/dL Ethyl Alcohol (<10) mg/dL < 3.0 Range/Units 06/12/24 01:45 WBC (4.4-10.8) 10^3/uL RBC (3.93-5.22) 10^6/uL Hgb (11.2-15.7) g/dL Hct (36.0-46.0) % MCV (80-95) fL MCH (27.0-33.0) pg MCHC (32.0-36.0) % RDW (11.7-14.6) % Plt Count (130-400) 10^3/uL MPV (8.0-11.0) fL Immature Gran % % Neutrophils % % Lymphocytes % % Monocytes % % Eosinophils % % Basophils % % Nucleated RBC % (0.0-0.3) % Absolute Neutrophils (1.2-6.7) 10^3/uL Absolute Lymphocytes (1.2-3.4) 10^3/uL Absolute Monocytes (0.1-0.8) 10^3/uL Absolute Eosinophils (0.0-0.7) 10^3/uL Absolute Basophils (0.0-0.2) 10^3/uL VBG Lactate (0.9-1.7) mmol/L Sodium (136-145) mmol/L Potassium (3.5-5.1) mmol/L Chloride (98-107) mmol/L Carbon Dioxide (21.0-32.0) mmol/L Anion Gap (3-11) mmol/L BUN (7-18) mg/dL Creatinine (0.55-1.02) mg/dL Est GFR (CKD-EPI 2020) (mL/min/1.73m2) Glucose (74-106) mg/dL Calcium (8.5-10.1) mg/dL Magnesium (1.8-2.4) mg/dL Total Bilirubin (0.2-1.0) mg/dL AST (15-37) U/L ALT (14-59) U/L Alkaline Phosphatase (46-116) U/L Troponin I (<or=51) ng/L Total Protein (6.4-8.2) g/dL Albumin (3.4-5.0) g/dL Lipase (16-77) U/L Urine Color (Yellow) Yellow Urine Clarity (Clear) Clear Urine pH (5-8) 7.0 Ur Specific Lincoln (1.005-1.025) 1.010 Urine Protein (Neg-Trace) mg/dL Negative Urine Ketones (Negative) mg/dL Negative Urine Blood (Negative) Negative Urine Nitrite (Negative) Negative Urine Bilirubin (Negative) Negative Urine Urobilinogen (Up to 0.2) mg/dL 0.2 Ur Leukocyte Esterase (Negative) Negative Urine Glucose (Negative) mg/dL Negative Ethyl Alcohol (<10) mg/dL Quality:SDOH Health Related Social Needs: No Data to Display PFSH All Active Problems (Updated 06/12/24 @ 02:44 by Florecita Alaniz MD) Lactate blood increase (Acute) Hypokalemia (Acute) Colitis (Acute) Acute non-ST elevation myocardial infarction (NSTEMI) (Acute) No-show for appointment (Acute) Hyperlipidemia (Acute) Left arm pain (Acute) Essential hypertension (Acute) Deltoid bursitis (Acute) SARS-CoV-2 positive (Acute 02/25/22) Tubular adenoma of colon (Acute) Asthma (Acute 12/20/12) Family history of diabetes mellitus (Acute 09/25/15) Impaired fasting blood sugar (Acute 09/25/15) Iron deficiency (Acute 09/25/15) Non-seasonal allergic rhinitis (Acute 01/19/18) Obesity (Acute 08/29/13) Obstructive sleep apnea syndrome (Acute 08/29/13) sleep study 08/09/13 Untreated, would not tolerate CPAP Restless legs (Acute 01/02/14) did not tolerate meds Tubulovillous adenoma of colon (Acute 04/08/18) Knee pain, right (Acute) Elevated blood pressure reading without diagnosis of hypertension (Acute) Complex tear of medial meniscus of right knee as current injury (Acute) Steroid injection: 09/11/2022; 06/09/2021 Medical History (Updated 06/12/24 @ 02:44 by Florecita Alaniz MD) Tendinitis of long head of biceps brachii of left shoulder Bursitis of left shoulder Impingement syndrome of left shoulder Iron deficiency Obesity (BMI 30-39.9) Asthma Restless legs Non-seasonal allergic rhinitis GEETHA (obstructive sleep apnea) Surgical History (Updated 12/25/21 @ 13:08 by Alissa England RN) H/O arthroscopic knee surgery Colonoscopy - [facility] (04/08/18) 11/2021 Family History Mother , ALS at age 51. No problems noted. Father Diabetes Essential hypertension COPD (chronic obstructive pulmonary disease) Asthma Social History (Updated 01/20/24 @ 15:53 by Sarah Gunn) Smoking/Tobacco Use Status: Never Second Hand Exposure: No Smoking risk assessment performed?: Yes Alcohol Intake: current Alcohol Intake frequency: holidays/special occasions only Alcohol type: wine Drug use: Never Adopted: No Caregiver/Support person: No Foster care: No Household members: spouse Housing: house Number of Children: 4 number of grandchildren: 8 Communication Needs: None Education Level: high school Do you need help understanding health information?: Never 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 Pets and animals: Yes (1) Pets and animals: dog(s) Sexually active: Yes Do you think of yourself as: straight/heterosexual Current gender identity: female What is your relationship status?: How often do you talk on the phone with friends or family?: three or more times per week How often do you get together with friends or relatives?: three or more times per week Do you belong to any clubs or organized social groups?: no Panel score (0-1 are the most socially isolated patients): 2 Johanna/Mosque: Nondenominational Special johanna needs: No Seatbelt use: always Helmet use: No (N/A) Drive intox or ride w/intox clamp truck driver: No Do you feel safe at home: Yes Do you feel safe in your relationship?: Yes
[2024-06-11 23:13] LABS: ETHANOL BLOOD < 3.0 mg/dL (<10)
[2024-06-11 23:15] LABS: Potassium 2.7 mmol/L (3.5-5.1)
[2024-06-11] MEDS: Omnipaque 350 MG/ML 100 ML BTL IJ (23:41)
[2024-06-11] MEDS: Normal Saline Flush 10 ML SYR IVP (23:42)
[2024-06-11] MEDS: Normal Saline - Diluent 50 ML VIAL IJ (23:42)
[2024-06-11 23:44] LABS: Lactate 2.22 mmol/L (0.9-1.7)
[2024-06-12] VITALS (42 sets, daily range): BP systolic 104–176; BP diastolic 52–126; PULSE 67–90; RESP 8–19; TEMP 36.7–37.5; O2SAT 94–100
[2024-06-12 00:01] LABS: Troponin I 27 ng/L (<or=51)
[2024-06-12] MEDS: POTASSIUM CHLORIDE 20 MEQ/100 ML BAG 50 MEQ IV_INF ×2 (00:15→02:20)
[2024-06-12] MEDS: Normal Saline 1,000 ML 1000 ML IV (00:15)
[2024-06-12] MEDS: Potassium Chloride Liquid 20 MEQ PKT 40 MEQ PO (00:16)
[2024-06-12 01:38] LABS: Lactate 2.25 mmol/L (0.9-1.7)
--- NOTE | 2024-06-12 01:45 | RT.EKG_ITS ---
APPROVED REPORT Exam: Resting ECG Reason for Exam: vomiting Patient Location: E HR:75 bpm ECG Measurements Heart Rate 75 AXIS MT 184 P 83 QRSd 93 QRS -46 QT 401 T 35 QTc 447 Conclusion Sinus rhythm...normal P axis, V-rate 60- [address] segment or T wave abnormalities to suggest occlusive [place]
[2024-06-12 01:53] LABS: Bilirubin Negative (Negative); Blood Negative (Negative); Clarity Clear (Clear); Glucose Negative (Negative); Ketones Negative (Negative); Leukocyte Esterase Negative (Negative); Nitrite Negative (Negative); Urobilinogen 0.2 mg/dL (Up to 0.2)
[2024-06-12 01:58] LABS: Troponin I 90 ng/L (<or=51)
--- NOTE | 2024-06-12 02:15 | DI.VRAD_ITS ---
PROCEDURE INFORMATION: Exam: CTA Abdomen and Pelvis With Contrast Exam date and time: 06/11/2024 11:43 PM Age: 59 years old Clinical indication: Abdominal pain; Other: Diffuse abd pain, vol guarding TECHNIQUE: Imaging protocol: Computed tomographic angiography of the abdomen and pelvis with contrast. Exam focused on the arteries. 3D rendering (Not supervised by radiologist): MIP and/or 3D reconstructed images were created by the technologist. Radiation optimization: All CT scans at this facility use at least one of these dose optimization techniques: automated exposure control; mA and/or kV adjustment per patient size (includes targeted exams where dose is matched to clinical indication); or iterative reconstruction. Contrast material: OMNIPAQUE 350; Contrast volume: 100 ml; Contrast route: INTRAVENOUS (IV); COMPARISON: MR LOWER JOINT RT WO 07/03/2021 10:05 AM FINDINGS: Lungs: Minimal platelike and dependent atelectasis at the lung bases. Aorta: Normal caliber abdominal aorta. Celiac trunk and mesenteric arteries: Celiac artery, superior mesenteric artery, and inferior mesenteric artery widely patent. Renal arteries: Main right renal artery widely patent. Main left renal artery widely patent. Small accessory left renal artery extending to the upper pole. Right iliac arteries: Right common iliac, internal iliac, and external iliac arteries widely patent. Right femoral/popliteal arteries: Right common femoral and visualized proximal right superficial femoral arteries widely patent. Left iliac arteries: Left common iliac, internal iliac, and external iliac arteries widely patent. Left femoral/popliteal arteries: Left common femoral and visualized proximal left superficial femoral arteries widely patent. Liver: Small indeterminate hypoattenuating hepatic lesion, incompletely characterized but most likely a small cyst or hemangioma. Gallbladder and biliary ducts: Normal appearing gallbladder. No calcified gallstones. No biliary dilatation. Pancreas: Normal appearing pancreas. Spleen: Normal appearing spleen. Adrenal glands: Normal appearing adrenal glands. Kidneys and ureters: Bilateral parapelvic renal cysts, larger and more numerous on the left. No ureterectasis. No obstructing ureteral stones. Stomach and bowel: Stomach moderately distended with fluid. No small bowel dilatation to suggest obstruction. Colon almost completely evacuated of formed fecal material and partially collapsed. Fluid throughout the colon in keeping with diarrhea. Apparent mural thickening through much of the collapsed colon. Extensive acute colitis? Artifact of incomplete distension? No focal acute diverticulitis. Appendix: Normal appendix. Intraperitoneal space: No gross ascites or free air. Lymph nodes: No pathologically enlarged mesenteric, retroperitoneal, or pelvic sidewall lymph nodes. Urinary bladder: Urinary bladder partially collapsed but grossly unremarkable, as seen. Reproductive: Anteverted uterus, normal in size. Normal-sized ovaries. Bones/joints: No acute fracture seen among the bones of the abdomen or pelvis. Given five [id number] lumbar vertebral bodies, tiny vestigial ribs at T12 and a transitional L5 vertebral body which is hemisacralized on the left. Please note that vertebral body numbering is not definitive in the absence of complete spinal visualization. Prominent facet arthrosis on the right at L4-L5. Soft tissues: No significant ventral or inguinal hernia. IMPRESSION: 1. No abdominal aortic aneurysm or dissection. 2. Colon almost completely evacuated of formed fecal material and partially collapsed. Fluid throughout the colon suggesting diarrhea. Apparent mural thickening through much of the collapsed colon. Extensive acute colitis is suspected. Artifact of incomplete distension could have a similar appearance. Clinical correlation is recommended. If there is clinical concern for colitis, infectious, inflammatory, or ischemic etiologies would be considered. Dictated and Authenticated by: Zoltan Wood MD. Ordering:SAMPSON Bernabe MD
[2024-06-12 02:29] LABS: Anion Gap 7.4 mmol/L (3-11); BUN 18 mg/dL (7-18); CO2 27.6 mmol/L (21.0-32.0); Calcium 8.5 mg/dL (8.5-10.1); Chloride 112 mmol/L (98-107); Glucose 98 mg/dL (74-106); Sodium 147 mmol/L (136-145)
--- NOTE | 2024-06-12 03:23 | W.PC.ACHO ---
Registration Status: Primary Language: Preferred Language: ED Information & Data Chief Complaint Nausea/Vomit/Diar 06/11/24 23:15 Triage Note nausea vomiting diarrhea 06/11/24 22:12 started 1 hour ago, per EMS pt O2Sat was low, pt stated she is feeling dizzy and weak Medical / Surgical History (Last Updated 01/18/24 @ 14:42 by Sin Palacios MD) Tendinitis of long head of biceps brachii of left shoulder Bursitis of left shoulder Impingement syndrome of left shoulder Iron deficiency Obesity (BMI 30-39.9) Asthma Restless legs Non-seasonal allergic rhinitis GEETHA (obstructive sleep apnea) (Last Updated 12/25/21 @ 13:08 by Alissa England RN) H/O arthroscopic knee surgery Colonoscopy - MAC (04/08/18) Most Recent Vital Signs Temperature 35.9 C L 06/11/24 22:12 Temperature Source Temporal Artery Scan 06/11/24 22:12 Pulse 67 06/12/24 03:08 Pulse 75 06/12/24 03:10 Respiratory Rate 14 06/12/24 02:30 Respiratory Effort Normal, Non-Labored 06/11/24 22:22 Blood Pressure 148/71 H 06/12/24 03:08 Blood Pressure Mean 99 06/12/24 03:08 Blood Pressure Position Supine 06/11/24 22:12 Pulse Oximetry 96 06/12/24 03:10 Oxygen Delivery Method Room Air 06/11/24 22:12 Oxygen Flow Rate 0 06/11/24 22:12 Allergies ropinirole Adverse Reaction (Intermediate, Verified 06/11/24 22:20) Nausea hydrocodone (Hydrocodone) Adverse Reaction (Unknown, Verified 06/11/24 22:20) itching Precautions Isolation Standard precaution 06/11/24 22:22 Active Medications Generic Name Dose Route Start Last Admin Trade Name Freq PRN Reason Stop Dose Admin Iohexol 100 ml 06/11/24 23:45 06/11/24 23:41 Omnipaque 350 Mg/Ml 100 Ml Btl IJ 07/11/24 23:59 100 ml DIRECTED PALAK Administration Sodium Chloride 50 ml 06/11/24 23:45 06/11/24 23:42 Normal Saline - Diluent 50 Ml Vial IJ 50 ml .FOR DI USE PALAK Administration Sodium Chloride 0 ml 06/11/24 23:42 06/11/24 23:42 Normal Saline Flush 10 Ml Syr IVP 10 ml PRN PRN Administration IV IV Catheter Type [Right Peripheral IV Antecubital] IV Catheter Type [Left Hand] Saline Lock IV Catheter Gauge [Right 18 Antecubital] IV Catheter Gauge [Left Hand] 20 Diet Orders Category Date Time Status Regular/Normal [DIET] Nutrition 06/12/24 Breakfast Active Diagnostics 06/12/24 06/12/24 06/12/24 Range/Units 05:30 02:14 01:45 WBC (4.4-10.8) 10^3/uL RBC (3.93-5.22) 10^6/uL Hgb (11.2-15.7) g/dL Hct (36.0-46.0) % MCV (80-95) fL MCH (27.0-33.0) pg MCHC (32.0-36.0) % RDW (11.7-14.6) % Plt Count (130-400) 10^3/uL MPV (8.0-11.0) fL Immature Gran % % Neutrophils % % Lymphocytes % % Monocytes % % Eosinophils % % Basophils % % Nucleated RBC % (0.0-0.3) % Absolute Neutrophils (1.2-6.7) 10^3/uL Absolute Lymphocytes (1.2-3.4) 10^3/uL Absolute Monocytes (0.1-0.8) 10^3/uL Absolute Eosinophils (0.0-0.7) 10^3/uL Absolute Basophils (0.0-0.2) 10^3/uL VBG Lactate (0.9-1.7) mmol/L Sodium 147 H (136-145) mmol/L Potassium 4.0 D (3.5-5.1) mmol/L Chloride 112 H (98-107) mmol/L Carbon Dioxide 27.6 (21.0-32.0) mmol/L Anion Gap 7.4 (3-11) mmol/L BUN 18 (7-18) mg/dL Creatinine 1.0 (0.55-1.02) mg/dL Est GFR (CKD-EPI 2020) 65.30 (mL/min/1.73m2) Glucose 98 (74-106) mg/dL Calcium 8.5 (8.5-10.1) mg/dL Magnesium (1.8-2.4) mg/dL Total Bilirubin (0.2-1.0) mg/dL AST (15-37) U/L ALT (14-59) U/L Alkaline Phosphatase (46-116) U/L Troponin I Pending (<or=51) ng/L Total Protein (6.4-8.2) g/dL Albumin (3.4-5.0) g/dL Lipase (16-77) U/L Urine Color Yellow (Yellow) Urine Clarity Clear (Clear) Urine pH 7.0 (5-8) Ur Specific [place] 1.010 (1.005-1.025) Urine Protein Negative (Neg-Trace) mg/dL Urine Ketones Negative (Negative) mg/dL Urine Blood Negative (Negative) Urine Nitrite Negative (Negative) Urine Bilirubin Negative (Negative) Urine Urobilinogen 0.2 (Up to 0.2) mg/dL Ur Leukocyte Esterase Negative (Negative) Urine Glucose Negative (Negative) mg/dL Ethyl Alcohol (<10) mg/dL 06/12/24 06/11/24 06/11/24 Range/Units 01:28 23:35 22:40 WBC 9.41 (4.4-10.8) 10^3/uL RBC 5.12 (3.93-5.22) 10^6/uL Hgb 15.3 (11.2-15.7) g/dL Hct 46.0 (36.0-46.0) % MCV 90 (80-95) fL MCH 29.9 (27.0-33.0) pg MCHC 33.3 (32.0-36.0) % RDW 13.6 (11.7-14.6) % Plt Count 197 (130-400) 10^3/uL MPV 11.6 H (8.0-11.0) fL Immature Gran % 0.2 % Neutrophils % 51.1 % Lymphocytes % 44.4 % Monocytes % 3.8 % Eosinophils % 0.4 % Basophils % 0.1 % Nucleated RBC % 0.0 (0.0-0.3) % Absolute Neutrophils 4.80 (1.2-6.7) 10^3/uL Absolute Lymphocytes 4.18 H (1.2-3.4) 10^3/uL Absolute Monocytes 0.36 (0.1-0.8) 10^3/uL Absolute Eosinophils 0.04 (0.0-0.7) 10^3/uL Absolute Basophils 0.01 (0.0-0.2) 10^3/uL VBG Lactate 2.25 H* 2.22 H* 2.92 H* (0.9-1.7) mmol/L Sodium 147 H (136-145) mmol/L Potassium 2.7 L* (3.5-5.1) mmol/L Chloride 108 H (98-107) mmol/L Carbon Dioxide 24.5 (21.0-32.0) mmol/L Anion Gap 14.5 H (3-11) mmol/L BUN 20 H (7-18) mg/dL Creatinine 1.2 H (0.55-1.02) mg/dL Est GFR (CKD-EPI 2020) 52.47 (mL/min/1.73m2) Glucose 204 H (74-106) mg/dL Calcium 9.2 (8.5-10.1) mg/dL Magnesium 2.0 (1.8-2.4) mg/dL Total Bilirubin 0.60 (0.2-1.0) mg/dL AST 15 (15-37) U/L ALT 27 (14-59) U/L Alkaline Phosphatase 72 (46-116) U/L Troponin I 90 H* 27 10 (<or=51) ng/L Total Protein 6.8 (6.4-8.2) g/dL Albumin 3.6 (3.4-5.0) g/dL Lipase 54 (16-77) U/L Urine Color (Yellow) Urine Clarity (Clear) Urine pH (5-8) Ur Specific [place] (1.005-1.025) Urine Protein (Neg-Trace) mg/dL Urine Ketones (Negative) mg/dL Urine Blood (Negative) Urine Nitrite (Negative) Urine Bilirubin (Negative) Urine Urobilinogen (Up to 0.2) mg/dL Ur Leukocyte Esterase (Negative) Urine Glucose (Negative) mg/dL Ethyl Alcohol < 3.0 (<10) mg/dL Intake and Output - 24 Hour Total 06/11/24 21:56 thru 06/12/24 02:15 Intake Total 220 Balance 2200 Weight 120.5 kg Intake: IV 2199 Other: Stool Size Moderate Stool Characteristics Liquid Falls Risk Assessment History of Falls No History 06/11/24 22:24 Contributing Factors No Factors 06/11/24 22:24 Ambulatory Aids Independent 06/11/24 22:24 Tubes/Lines None 06/11/24 22:24 Gait Evaluation No gait disturbance 06/11/24 22:24 Cognition No cognitive impairment 06/11/24 22:24 Fall Total Score 0 06/11/24 22:24 Level of Risk Standard/Low Risk 06/11/24 22:24 v v v v v v v v v Sending and/or Receiving Nurses: Please use comment section below to note any information pertinent to the patient hand-off not included above. Information / Comments: Pt arrived to ED via EMS c/o acute onset of N/V/D, pallor and lethargy. Pt was also hypoxic with SPO2 at 80%, put on NC. Pt received 2L of NS, Tylenol IV, and Zofran x1 in ED. K 2.7 on arrival, pt received 40 meq PO and 40 meq IV. Current K is 4.0. Troponin uptrending . Redraw at 0530. Pt is currently A&Ox3, Independent, and on RA. Report received from: Dimitri Morton, SANDRITA
[2024-06-12 05:53] LABS: Lactate 1.93 mmol/L (0.9-1.7)
[2024-06-12 06:02] LABS: Troponin I 106 ng/L (<or=51)
--- NOTE | 2024-06-12 06:32 | HPE_ITS ---
Date of service: 06/12/24 Time of Service: 06:32 Assessment and Plan Assessment and plan (1) Colitis: Status: Acute Assessment and plan: Admitting diagnosis of colitis. She had a diarrhea episode that evacuated her entire colon. Differential includes food poisoning versus viral versus inflammatory bowel disease. C. difficile is a possibility but she has not been on antibiotics recently. There is been no bloody diarrhea. Her abdomen is quiet and she has had no further diarrhea since admission. Will challenge her with oral diet and see how she does. (2) Lactate blood increase: Status: Acute Assessment and plan: Lactate was mildly elevated at 2.22 and 2.25 on repeat. (3) Hypokalemia: Status: Acute Assessment and plan: Potassium was low at 2.7 but has been repleted and is now 4.0 (4) Acute non-ST elevation myocardial infarction (NSTEMI): Status: Acute Assessment and plan: Mild bump in her troponins, 10, 27, 90, 106. Does not appear to be an acute VA. (5) Essential hypertension: Status: Acute Assessment and plan: She has been on valsartan hand for high blood pressure. Now with fluid replacement her blood pressures are back to normal. History of Present Illness History of Present Illness Chief Complaint: Vomiting diarrhea hypotension N arrative: 59-year-old woman who developed itching and then her lips turned purple followed by an episode of vomiting this past evening. She then developed diarrhea and felt extremely weak. Her had to help her to the floor. She felt as though she was going to pass out. She had a normal meal of [employer] that she made herself with fresh ingredients that evening. They were at [facility] earlier in the day. No one else is sick at home. In the emergency room a CT angio of the abdomen and pelvis showed complete evacuation of the colon with some suspicion of mural thickening versus artifact. Consider colitis. She received IV fluids for some low blood pressures which have responded well. She is admitted to observation status. Her troponins have been mildly elevated. She has had no symptoms of acute coronary syndrome. She is being monitored on telemetry. Review of Systems Narrative: Review of systems as per HPI. She is normally healthy and active without similar symptoms. She does recount having 2 weeks of vomiting and diarrhea in February 2024. She specifically has not been having chest pain or pressure. She felt short of breath when she first arrived in the ED but that subsided. She is currently without any specific symptoms. 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) Restless legs (01/02/14) did not tolerate meds Obstructive sleep apnea syndrome (08/29/13) sleep study 08/09/13 Untreated, would not tolerate CPAP Obesity (08/29/13) Non-seasonal allergic rhinitis (01/19/18) Iron deficiency (09/25/15) Impaired fasting blood sugar (09/25/15) Family history of diabetes mellitus (09/25/15) Asthma (12/20/12) Tubular adenoma of colon SARS-CoV-2 positive (02/25/22) Deltoid bursitis Left arm pain Hyperlipidemia No-show for appointment Tendinitis of long head of biceps brachii of left shoulder Bursitis of left shoulder Impingement syndrome of left shoulder Iron deficiency Obesity (BMI 30-39.9) Asthma Restless legs Non-seasonal allergic rhinitis GEETHA (obstructive sleep apnea) Surgical History (Updated 12/25/21 @ 13:08 by Alissa England RN) H/O arthroscopic knee surgery Colonoscopy - MAC (04/08/18) 11/2021 Family History Mother , ALS at age 51. No problems noted. Father Diabetes Essential hypertension COPD (chronic obstructive pulmonary disease) Asthma Social History (Updated 01/20/24 @ 15:53 by Sarah Gunn) Smoking/Tobacco Use Status: Never Second Hand Exposure: No Smoking risk assessment performed?: Yes Alcohol Intake: current Alcohol Intake frequency: holidays/special occasions only Alcohol type: wine Drug use: Never Adopted: No Caregiver/Support person: No Foster care: No Household members: spouse Housing: house Number of Children: 4 number of grandchildren: 8 Communication Needs: None Education Level: high school Do you need help understanding health information?: Never 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 Pets and animals: Yes (1) Pets and animals: dog(s) Sexually active: Yes Do you think of yourself as: straight/heterosexual Current gender identity: female What is your relationship status?: How often do you talk on the phone with friends or family?: three or more times per week How often do you get together with friends or relatives?: three or more times per week Do you belong to any clubs or organized social groups?: no Panel score (0-1 are the most socially isolated patients): 2 Johanna/Methodist: Jew Special johanna needs: No Seatbelt use: always Helmet use: No (N/A) Drive intox or ride w/intox package delivery driver: No Do you feel safe at home: Yes Do you feel safe in your relationship?: Yes Meds Allergies and Home Medications Allergies Allergy/AdvReac Type Severity Reaction Status Date / Time ropinirole AdvReac Intermediate Nausea Verified 06/11/24 22:20 hydrocodone (Hydrocodone) AdvReac Unknown itching Verified 06/11/24 22:20 Home Medications ?Medication ?Instructions ?Recorded ?Confirmed ?Type naproxen sodium 220 mg tablet 220 mg PO DAILY PRN 11/20/13 06/11/24 History (Aleve) melatonin 3 mg tablet 3 mg PO HS 05/13/21 06/11/24 History mometasone 50 mcg/actuation nasal 2 spray NS BID #3 multiple units 09/20/23 06/11/24 Rx spray albuterol sulfate 90 mcg/actuation 2 puff inhalation Q6H PRN 10/18/23 06/11/24 Rx aerosol inhaler shortness of breath or wheezing #8.5 grams atorvastatin 20 mg tablet 20 mg PO QHS #90 tabs 01/20/24 06/11/24 Rx semaglutide (weight loss) 0.25 0.25 mg (0.5 mL) subcut QWEEK #2 mL 01/20/24 06/11/24 Rx mg/0.5 mL subcutaneous pen injector (Wegovy) losartan 50 mg tablet 50 mg PO DAILY #90 tabs 04/17/24 06/11/24 Rx Exam Narrative Exam Narrative: On exam she is pleasant and alert. She appears coherent and lucid. Her breathing was not at all labored. She had no cough. Her heart sounds were somewhat muffled but sounded regular no murmur appreciated. Her lung sounds were soft and clear bilaterally. Her abdomen was quite markedly obese but overall nontender to palpation in all 4 quadrants. There was no guarding no rebound. Her lower extremities appeared well-perfused. There is no evidence of edema. Neurologically there are no focal deficits apparent. Results Imaging Abdomen CT scan report/results: report reviewed (Colon mostly empty except for some fluid. There was a question of mural thickening versus artifact) Labs 06/11/24 22:40 06/12/24 02:14 Labs: Laboratory Results - last 24 hr 06/11/24 06/11/24 06/12/24 22:40 23:35 01:28 WBC 9.41 RBC 5.12 Hgb 15.3 Hct 46.0 MCV 90 MCH 29.9 MCHC 33.3 RDW 13.6 Plt Count 197 MPV 11.6 H Immature Gran % 0.2 Neutrophils % 51.1 Lymphocytes % 44.4 Monocytes % 3.8 Eosinophils % 0.4 Basophils % 0.1 Nucleated RBC % 0.0 Absolute Neutrophils 4.80 Absolute Lymphocytes 4.18 H Absolute Monocytes 0.36 Absolute Eosinophils 0.04 Absolute Basophils 0.01 VBG Lactate 2.92 H* 2.22 H* 2.25 H* Sodium 147 H Potassium 2.7 L* Chloride 108 H Carbon Dioxide 24.5 Anion Gap 14.5 H BUN 20 H Creatinine 1.2 H Est GFR (CKD-EPI 2020) 52.47 Glucose 204 H Calcium 9.2 Magnesium 2.0 Total Bilirubin 0.60 AST 15 ALT 27 Alkaline Phosphatase 72 Troponin I 10 27 90 H* Total Protein 6.8 Albumin 3.6 Lipase 54 Urine Color Urine Clarity Urine pH Ur Specific [place] Urine Protein Urine Ketones Urine Blood Urine Nitrite Urine Bilirubin Urine Urobilinogen Ur Leukocyte Esterase Urine Glucose Ethyl Alcohol < 3.0 06/12/24 06/12/24 06/12/24 01:45 02:14 05:20 WBC RBC Hgb Hct MCV MCH MCHC RDW Plt Count MPV Immature Gran % Neutrophils % Lymphocytes % Monocytes % Eosinophils % Basophils % Nucleated RBC % Absolute Neutrophils Absolute Lymphocytes Absolute Monocytes Absolute Eosinophils Absolute Basophils VBG Lactate 1.93 H Sodium 147 H Potassium 4.0 D Chloride 112 H Carbon Dioxide 27.6 Anion Gap 7.4 BUN 18 Creatinine 1.0 Est GFR (CKD-EPI 2020) 65.30 Glucose 98 Calcium 8.5 Magnesium Total Bilirubin AST ALT Alkaline Phosphatase Troponin I 106 H* Total Protein Albumin Lipase Urine Color Yellow Urine Clarity Clear Urine pH 7.0 Ur Specific [place] 1.010 Urine Protein Negative Urine Ketones Negative Urine Blood Negative Urine Nitrite Negative Urine Bilirubin Negative Urine Urobilinogen 0.2 Ur Leukocyte Esterase Negative Urine Glucose Negative Ethyl Alcohol Last Vital Signs Temp 36.7 C 06/12/24 03:32 Pulse 75 06/12/24 03:32 Resp 16 06/12/24 03:32 BP 146/87 H 06/12/24 03:32 Pulse Ox 99 06/12/24 03:32 PAWSS Have you Been Recently Intoxicated or Drunk Within the Last 30 days?: No Have you Ever Experienced Previous Episodes of Alcohol Withdrawal?: No Have you ever Experienced Withdrawal Seizures?: No Have you ever Experienced Delirium Tremens(DT)s?: No Have you ever undergone Alcohol Rehabilitation Treatment (i.e, inpt ot outpatient treatment programs)?: No Have you ever Experienced Blackouts?: No Have you ever Combined Alcohol with other Downers within the last 90 days?: No Have you ever Combined Alcohol with any other Substance of Abuse during the last 90 days?: No Positive Blood Alcohol level on Presentation? [PCS.BAL]: No Evidence of Increased Autonomic Activity (i.e. HR>120, tremor, sweating, agitation, nausea)?: No Result: 0 Time Spent Time spent with Patient: <40 minutes Time was spent: preparing to see the patient(eg.review tests), obtaining and/or reviewing separately otained hiistory, ordering medications,tests, procedures, referring, communicating with other health medicare contact specialist and indepentently interpreting results
--- NOTE | 2024-06-12 08:20 | RESPIRATORY ---
Spoke with patient about her GEETHA diagnosis and patient advised she had sleep study 15+ years ago and it was recommended she get a CPAP machine but patient never did.
--- NOTE | 2024-06-12 08:34 | PDOC.CMIN ---
Date of service: 06/12/24 Time of Service: 08:34 Care Management Initial Assmt Initial Assessment Reason for Hospitalization: colitis Functional Status/Living Situation Patient Presentation: Toyin was sitting up in bed visiting with her and one of her daughters when CM met with her. She was pleasant in interaction and engaged well with CM. Toyin stated that she is feeling better than yesterday but is still having diarrhea. In addition to the diarrhea, Toyin had mildly elevated troponins (10-109) and a lactate of 2.25 which came down to 1.93. Another new finding today is the presence of blood in her stool. Toyin lives in a single family home with her Sahil. They have 4 children; 2 live locally, one lives in [place] and the 4th is in [place]. 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 She is independent at baseline and does not receive any community services. Town of Residence: [place] Resides with: Spouse (Sahil) Significant Other/Family: Local (most of the family is local; one child lives in [place]) Employment Status: Employed Instrumental Activities of Daily Living (ADLs): Independent Medications Medication Management: No Issues/Barriers identified Physical Functioning/Mobility Assistive Device: none Advance Directives Advance Directives: Do you have an Advance Directive: N 07/23/13 14:04 AD On File at [facility]: N 07/23/13 14:04 Date Asked 06/12/24 06/12/24 02:52 AD Date Reviewed COLST On File at [facility] COLST Date Scanned Code Status Resuscitation Status Full Code Insurance Coverage/Financial Issues Insurance: BC/BS out of state Care Team Visit Care Team Role Provider Type Sam Goodson DO Primary Care Provider OSTEOPATHIC DOCTOR Florecita Alaniz MD Emergency Provider [facility] STAFF PHYSICIAN Oracio Nieves MD Admit Provider [facility] STAFF PHYSICIAN Attending Provider Discharge Potential Discharge Needs: PCP F/U Appt Anticipated Barriers to Discharge: None Identified Patient/Family Education Needs: Review discharge instructions, discuss Ask Me Three Transportation: Private vehicle Plan: Anticipate Toyin will be discharged home wiht no new services when medically cleared. She will follow up with her PCP and plan of care and transport with family. CM will follow and continue to assess for discharge needs. 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) Restless legs (01/02/14) did not tolerate meds Obstructive sleep apnea syndrome (08/29/13) sleep study 08/09/13 Untreated, would not tolerate CPAP Obesity (08/29/13) Non-seasonal allergic rhinitis (01/19/18) Iron deficiency (09/25/15) Impaired fasting blood sugar (09/25/15) Family history of diabetes mellitus (09/25/15) Asthma (12/20/12) Tubular adenoma of colon SARS-CoV-2 positive (02/25/22) Deltoid bursitis Left arm pain Hyperlipidemia No-show for appointment Tendinitis of long head of biceps brachii of left shoulder Bursitis of left shoulder Impingement syndrome of left shoulder Iron deficiency Obesity (BMI 30-39.9) Asthma Restless legs Non-seasonal allergic rhinitis GEETHA (obstructive sleep apnea) Surgical History (Updated 12/25/21 @ 13:08 by Alissa Enlgand RN) H/O arthroscopic knee surgery Colonoscopy - MAC (04/08/18) 11/2021 Family History Mother , ALS at age 51. No problems noted. Father Diabetes Essential hypertension COPD (chronic obstructive pulmonary disease) Asthma Social History (Updated 01/20/24 @ 15:53 by Sarah Gunn) Smoking/Tobacco Use Status: Never Second Hand Exposure: No Smoking risk assessment performed?: Yes Alcohol Intake: current Alcohol Intake frequency: holidays/special occasions only Alcohol type: wine Drug use: Never Adopted: No Caregiver/Support person: No Foster care: No Household members: spouse Housing: house Number of Children: 4 number of grandchildren: 8 Communication Needs: None Education Level: high school Do you need help understanding health information?: Never 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 Pets and animals: Yes (1) Pets and animals: dog(s) Sexually active: Yes Do you think of yourself as: straight/heterosexual Current gender identity: female What is your relationship status?: How often do you talk on the phone with friends or family?: three or more times per week How often do you get together with friends or relatives?: three or more times per week Do you belong to any clubs or organized social groups?: no Panel score (0-1 are the most socially isolated patients): 2 Johanna/Orthodox: Spiritism Special johanna needs: No Seatbelt use: always Helmet use: No (N/A) Drive intox or ride w/intox transit driver: No Do you feel safe at home: Yes Do you feel safe in your relationship?: Yes SDOH(Care Management) Screening Will the Patient Participate in the Screening?: Yes Do you worry about having a steady place to live?: no Problems where you live: no known problems In the past 12 months, have you had to go without electric, gas, oil or water in your home?: no Have you or anyone in your house had to go without enough food to eat?: no Has lack of transportation kept you from medical appointments or from doing things needed for daily living?: no Has anyone in your support network made you feel unsafe for any reason?: no
[2024-06-12 10:07] LABS: Abs Immature Grans 0.04 10^3/uL (0.0-0.06); Absolute Basophil Count 0.01 10^3/uL (0.0-0.2); Absolute Eosinophil Count 0.02 10^3/uL (0.0-0.7); Absolute Lymphocyte Count 1.22 10^3/uL (1.2-3.4); Absolute Monocyte Count 0.72 10^3/uL (0.1-0.8); Absolute Neutrophil Count 8.47 10^3/uL (1.2-6.7); Basophils % 0.1 %; Eosinophils % 0.2 %; HCT 40.9 % (36.0-46.0); HGB 13.6 g/dL (11.2-15.7); Immature Grans % 0.4 %; Lymphocytes % 11.6 %; MCH 30.4 pg (27.0-33.0); MCHC 33.3 % (32.0-36.0); MCV 91 fL (80-95); MPV 11.5 fL (8.0-11.0); Monocytes % 6.9 %; Neutrophils % 80.8 %; Platelet Count 172 10^3/uL (130-400); RBC 4.48 10^6/uL (3.93-5.22); RDW 13.9 % (11.7-14.6); RDW-SD 46.8 fL; WBC 10.48 10^3/uL (4.4-10.8)
[2024-06-12 11:52] LABS: C Diff PCR Positive (Negative)
[2024-06-12] MEDS: Fidaxomicin 200 MG TAB PO ×2 (12:28→20:13)
[2024-06-12 13:01] LABS: Troponin I 34 ng/L (<or=51)
--- NOTE | 2024-06-12 16:35 | TELEFU_ITS ---
Date of service: 06/12/24 Time of Service: 12:00 Nutrition Note NOTE: Visited with Toyin and some family members. Currently on regular diet with poor to fair po reported. Pt admitted for colitis and has had significant diarrhea. Weight loss noted, however Toyin states she has been intentionally losing weight - has rx for wegovy at home (being held currently). We discussed that as they are working to see if there are any other concerns/causes, low residue diet would be best and avoidance of high fat choices and spicy foods. Offered Banatrol supplement to try and left with Toyin as she felt she could not drink it right away. Will follow up to see if she tried it, and will provide 1- 3 pkts per day if she is agreeable to continue taking and finds it helpful. Will continue to monitor stooling, po intake, weight and labs. Patient screened at lower nutrition risk at this time. Time Spent in Nutritional Counseling and Treatment: 10 minutes
[2024-06-12] MEDS: Normal Saline Flush 10 ML SYR IVP (20:13)
[2024-06-12] MEDS: Atorvastatin 20 MG TAB PO (20:13)
[2024-06-12] MEDS: Melatonin 3 MG TAB PO (20:13)
[2024-06-12] MEDS: Losartan 25 MG TAB 50 MG PO (21:44)
[2024-06-13 03:48] VITALS: BP 128/73; PULSE 81; RESP 16; TEMP 36.7; O2SAT 95
[2024-06-13 06:58] LABS: Abs Immature Grans 0.01 10^3/uL (0.0-0.06); Absolute Basophil Count 0.02 10^3/uL (0.0-0.2); Absolute Eosinophil Count 0.12 10^3/uL (0.0-0.7); Absolute Monocyte Count 0.61 10^3/uL (0.1-0.8); Basophils % 0.2 %; Eosinophils % 1.4 %; HCT 39.3 % (36.0-46.0); HGB 13.1 g/dL (11.2-15.7); Immature Grans % 0.1 %; Lymphocytes % 23.1 %; MCH 30.3 pg (27.0-33.0); MCHC 33.3 % (32.0-36.0); MCV 91 fL (80-95); MPV 11.9 fL (8.0-11.0); Neutrophils % 68.2 %; Platelet Count 158 10^3/uL (130-400); RBC 4.33 10^6/uL (3.93-5.22); RDW 14.4 % (11.7-14.6); RDW-SD 47.8 fL; WBC 8.66 10^3/uL (4.4-10.8)
[2024-06-13 07:20] LABS: Anion Gap 9.9 mmol/L (3-11); BUN 9 mg/dL (7-18); CO2 25.1 mmol/L (21.0-32.0); CREATININE 0.8 mg/dL (0.55-1.02); Calcium 8.5 mg/dL (8.5-10.1); Chloride 112 mmol/L (98-107); Estimated GFR 85.35 (mL/min/1.73m2); Glucose 92 mg/dL (74-106); Potassium 3.9 mmol/L (3.5-5.1); Sodium 147 mmol/L (136-145)
[2024-06-13 07:45] VITALS: BP 122/77; PULSE 88; RESP 18; TEMP 36.8; O2SAT 94
[2024-06-13] MEDS: Fidaxomicin 200 MG TAB PO (09:30)
--- NOTE | 2024-06-13 09:55 | PDOC.CMDIS ---
Date of service: 06/13/24 Time of Service: 09:59 LACE Index Scoring Tool Questions: Length of Stay (in days): 1 Was the patient admitted via the E.D.?: Yes Comorbidities: Chronic Pulmonary Disease E.D. Visits: 1 Answers: Total Score: 7 Risk of Readmission: Low Risk Care Management Discharge Plan Reason for Hospitalization: colitis Discharge Plan: Toyin will be discharged home with no new services. She will follow up with her community providers and plan of care and transport with family. Patient/Family Education Needs: review of discharge instructions, limitations, follow up plan, discuss Ask Me Three [facility] Health Related Social Needs: No Data to Display
--- NOTE | 2024-06-13 09:56 | W.PM.DS.N ---
Date of service: 06/13/24 Time of Service: 09:56 DS: Diagnosis Discharge Diagnosis (1) C. difficile colitis: Status: Acute (2) Elevated troponin: Status: Acute (3) Hypokalemia: Status: Acute (4) Essential hypertension: Status: Acute (5) Lactate blood increase: Status: Acute Discharge Plan Disposition Patient Disposition: Home Condition: Good Discharge Details Reason For Visit: colitis Admit Date/Time: 06/12/24 02:34 Admit Provider: Oracio Nieves Attending Provider: Oracio Nieves Primary Care Provider: Sam Goodson [facility] Course Hospital Course: 59 yo F with HTN and hyperlipidemia presented with acute onset diarrhea associated with presyncope. Evaluation in the ED included CTA and CT of abdomen an pelvis, and showed normal circulation but did show an empty bowel with some mural thickening of the colon. Lactate was 2.92, WBC was normal. She had mild CARLOS with creatinine at 1.2. She was admitted for supportive care with fluids. She subsequently had multiple bloody bowel movements. C. difficile toxin PCR was positive and she was started on Dificid. By the next morning, she was no longer having diarrhea. Potassium was 2.7 on admission, and was replaced and normalized. Her troponin was noted to be elevated at 3 hours from presentation. Trend was [id number]. She never had chest pain or ischemic EKG changes. Her cardiac monitoring was benign. She was not treated for ACS. Work up for cardiac ischemia should be considered as an outpatient. Home Meds and New Rx's Prescriptions: New vancomycin 125 mg capsule 125 mg PO QID 9 Days Qty: 36 0RF Rx Instructions: dificid too expensive Continued atorvastatin 20 mg tablet 20 mg PO QHS Qty: 90 3RF Wegovy 0.25 mg/0.5 mL pen injector 0.25 mg subcut QWEEK Qty: 2 0RF Rx Instructions: administer weeks 1 through 4 of therapy melatonin 3 mg tablet 3 mg PO HS mometasone 50 mcg/actuation spray,non-aerosol 2 spray NS BID Qty: 3 3RF naproxen sodium [Aleve] 220 MG tablet 220 mg PO DAILY PRN Rx Instructions: for knee pain 1-2 x's weekly cgc albuterol sulfate 90 mcg/actuation HFA aerosol inhaler 2 puff inhalation Q6H PRN (Reason: shortness of breath or wheezing) Qty: 8.5 3RF losartan 50 mg tablet 50 mg PO DAILY Qty: 90 3RF Discharge Instructions Instructions: C. difficile infection Additional Instructions: Make sure you complete your course of antibiotics completely for the intestinal infection. 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 You should talk with your primary care about testing for your heart. You had a mild elevation of the heart enzyme called troponin in the blood when you were sick, though you did not have a heart attack. Stand Alone Forms: Nursing Discharge Form Referrals: Sam Goodson DO [Primary Care Provider] - 06/29/24 10:15 am Activity:: Activity as Tolerated Equipment/Supplies:: No Equipment Needed Diet:: As Tolerated Discharge Orders Discharge Orders: Discharge Order (Routine); Ordered 06/13/24 Ordered By: Suman Hernandez Discharge Data Discharge Date/Time-TO BE ENTERED AT DEPARTURE: 06/13/24 13:31 DS: Summary Time Spent with Patient providing and/or coordinating discharge services: Greater than 30 minutes Status at Discharge Functional status at discharge: independent ambulation Overall status at discharge: patient is back to baseline Mental Status: mental status grossly normal Speech and Movement: speech and movement normal Mood: congruent mood Affect: normal affect Quality:SDOH Health Related Social Needs: No Data to Display Exam Narrative Exam Narrative: General: Alert and oriented, sitting up in chair, no distress ENT: ?MMM.? no icterus Cardiac: ?RRR, no murmurs appreciated Resp: No respiratory distress. CTAB. Abd: ?Soft, non-distended, non tender Extremities: ?No deformities.? No peripheral edema. Psych Mental Status: mental status grossly normal Speech and Movement: speech and movement normal Mood: congruent mood Affect: normal affect DS: Data Vitals/I&O Vitals and I&O: Vital Signs Temperature 36.8 C 06/13/24 07:45 Temperature Source Temporal Artery Scan 06/13/24 07:45 Pulse 88 06/13/24 07:45 Pulse Rhythm Regular 06/12/24 03:32 Pulse 75 06/12/24 03:10 Respiratory Rate 18 06/13/24 07:45 Respiratory Effort Normal, Non-Labored 06/12/24 03:32 Respiratory Depth Normal 06/12/24 03:32 Respiratory Pattern Normal 06/12/24 03:32 Blood Pressure 122/77 06/13/24 07:45 Blood Pressure Mean 99 06/12/24 03:08 Blood Pressure Position Supine 06/11/24 22:12 Pulse Oximetry 94 06/13/24 07:45 Oxygen Delivery Method Room Air 06/13/24 07:45 Oxygen Flow Rate 0 06/13/24 07:45 Pain Level 0 06/13/24 03:48 Comment RN Notified 06/12/24 02:30 Intake & Output 06/12/24 06/12/24 06/13/24 11:59 23:59 11:59 Intake Total 1100 / 1110 10 / 1110 Output Total 450 / 1450 1000 / 1450 200 / 200 Balance 650 / -340 -990 / -340 -200 / -200 Weight 116.9 kg Intake: IV 1100 / 1110 10 0 Output: Urine 450 / 1450 1000 / 1450 200 / 200 Other: Urine Color Yellow Yellow Yellow Urine Appearance Clear Cloudy Cloudy Urine Odor Normal Normal Normal Comment pT stated shes voided Stool Occult Blood Positive Positive Stool Size Moderate Small Stool Characteristics Liquid Soft Liquid Bloody Voiding Methods Toilet Toilet Data Completed and Pending Labs on day of discharge: Labs from last 24 hours 06/13/24 06/12/24 06/12/24 05:48 12:25 12:17 WBC 8.66 RBC 4.33 Hgb 13.1 Hct 39.3 MCV 91 MCH 30.3 MCHC 33.3 RDW 14.4 Plt Count 158 MPV 11.9 H Immature Gran % 0.1 Neutrophils % 68.2 Lymphocytes % 23.1 Monocytes % 7.0 Eosinophils % 1.4 Basophils % 0.2 Nucleated RBC % 0.0 Absolute Neutrophils 5.90 Absolute Lymphocytes 2.00 Absolute Monocytes 0.61 Absolute Eosinophils 0.12 Absolute Basophils 0.02 Sodium 147 H Potassium 3.9 Chloride 112 H Carbon Dioxide 25.1 Anion Gap 9.9 BUN 9 Creatinine 0.8 Est GFR (CKD-EPI 2020) 85.35 Glucose 92 Calcium 8.5 Troponin I 34 Stool Campylobacter PCR Pending Stl C.difficile Tox PCR Stool Salmonella PCR Pending Stool Shigella PCR Pending Shiga Toxin (PCR) Pending 06/12/24 06/12/24 10:26 10:00 WBC 10.48 RBC 4.48 Hgb 13.6 Hct 40.9 MCV 91 MCH 30.4 MCHC 33.3 RDW 13.9 Plt Count 172 MPV 11.5 H Immature Gran % 0.4 Neutrophils % 80.8 Lymphocytes % 11.6 Monocytes % 6.9 Eosinophils % 0.2 Basophils % 0.1 Nucleated RBC % 0.0 Absolute Neutrophils 8.47 H Absolute Lymphocytes 1.22 Absolute Monocytes 0.72 Absolute Eosinophils 0.02 Absolute Basophils 0.01 Sodium Potassium Chloride Carbon Dioxide Anion Gap BUN Creatinine Est GFR (CKD-EPI 2020) Glucose Calcium Troponin I Stool Campylobacter PCR Stl C.difficile Tox PCR Positive A Stool Salmonella PCR Stool Shigella PCR Shiga Toxin (PCR) PFSH All Active Problems (Updated 06/13/24 @ 09:57 by Suman Hernandez) C. difficile colitis (Acute) Elevated troponin (Acute) Lactate blood increase (Acute) Hypokalemia (Acute) Colitis (Acute) Acute non-ST elevation myocardial infarction (NSTEMI) (Acute) Essential hypertension (Acute) Medical History (Updated 06/13/24 @ 09:57 by Suman Hernandez) No-show for appointment Hyperlipidemia Left arm pain Impingement syndrome of left shoulder Bursitis of left shoulder Tendinitis of long head of biceps brachii of left shoulder Deltoid bursitis SARS-CoV-2 positive (02/25/22) Tubular adenoma of colon Complex tear of medial meniscus of right knee as current injury Steroid injection: 09/11/2022; 06/09/2021 Elevated blood pressure reading without diagnosis of hypertension Knee pain, right 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) Restless legs (01/02/14) did not tolerate meds Obstructive sleep apnea syndrome (08/29/13) sleep study 08/09/13 Untreated, would not tolerate CPAP Obesity (08/29/13) Non-seasonal allergic rhinitis (01/19/18) Iron deficiency (09/25/15) Impaired fasting blood sugar (09/25/15) Family history of diabetes mellitus (09/25/15) Asthma (12/20/12) Iron deficiency Obesity (BMI 30-39.9) Asthma Restless legs Non-seasonal allergic rhinitis GEETHA (obstructive sleep apnea) Surgical History (Updated 12/25/21 @ 13:08 by Alissa England RN) H/O arthroscopic knee surgery Colonoscopy - MAC (04/08/18) 11/2021 Family History Mother , ALS at age 51. No problems noted. Father Diabetes Essential hypertension COPD (chronic obstructive pulmonary disease) Asthma Social History (Updated 01/20/24 @ 15:53 by Sarah Gunn) Smoking/Tobacco Use Status: Never Second Hand Exposure: No Smoking risk assessment performed?: Yes Alcohol Intake: current Alcohol Intake frequency: holidays/special occasions only Alcohol type: wine Drug use: Never Adopted: No Caregiver/Support person: No Foster care: No Household members: spouse Housing: house Number of Children: 4 number of grandchildren: 8 Communication Needs: None Education Level: high school Do you need help understanding health information?: Never 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 Pets and animals: Yes (1) Pets and animals: dog(s) Sexually active: Yes Do you think of yourself as: straight/heterosexual Current gender identity: female What is your relationship status?: How often do you talk on the phone with friends or family?: three or more times per week How often do you get together with friends or relatives?: three or more times per week Do you belong to any clubs or organized social groups?: no Panel score (0-1 are the most socially isolated patients): 2 Johanna/Jewish: Hoahaoism Special johanna needs: No Seatbelt use: always Helmet use: No (N/A) Drive intox or ride w/intox 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
[2024-06-13 11:15] VITALS: BP 114/74; PULSE 81; RESP 19; TEMP 36.3; O2SAT 96
== END 2024-06-13 13:31 | disposition home or self-care (01) ==
LOC: ER 06-12 02:52 → MS 06-12 03:25
PROVIDERS: Family Medicine; Admitting Provider Family Medicine; Emergency Provider Student in an Organized Health Care Education/Training Program; PCP Family Medicine; Visit Provider Family Medicine
DX: A04.72 Enterocolitis due to Clostridium difficile, not specified as recurrent; E87.20 Acidosis, unspecified; R74.8 Abnormal levels of other serum enzymes; I10 Essential (primary) hypertension; G47.33 Obstructive sleep apnea (adult) (pediatric); E66.9 Obesity, unspecified; Z68.41 Body mass index [BMI] 40.0-44.9, adult; E78.5 Hyperlipidemia, unspecified; E61.1 Iron deficiency; J45.909 Unspecified asthma, uncomplicated; G25.81 Restless legs syndrome; Z79.899 Other long term (current) drug therapy
CPT/HCPCS: 00123; 36415; 80048; 80053; 83690; 87493; 87505; 93005; 96361; 96365; 99285; 74174; 80320; 81003; 83605; 83735; 84484; 85025; 93010; 99222; 99239; G0378; J0131; J2405; J3480; J3490

== ENCOUNTER 2024-07-13 00:35 | Outpatient (CLI) | payer BC, SELFPAY ==
--- NOTE | 2024-07-13 08:51 | DI.NM_ITS ---
APPROVED REPORT Exam: Exercise Treadmill Patient Location: Out-Patient Room/Bed: Stress Nurse: Nilo Correa RN and Yanely Esteban RN Ordering Provider:PEPE MORA, Contact Number: [phone] BMI: 41.96 Baseline Rhythm: Sinus Rhythm. Indications: Elevated Troponins in setting of Clostridium difficile infection. Medical History Medical History: Hyperlipidemia; Hypertension; Asthma; Obstructive Sleep Apnea; Obesity; NSTEMI; Hypo kalemia; Clostridium difficile infection. Cardiac Medications: Albuterol Sulfate; Atorvastatin; Losartan. Allergies: Hydrocodone; Ropinirole. Cardiac Risk Factors: Family Hx; Hyperlipidemia; Hypertension; Asthma; Obesity. Previous Cardiac Procedures: None. Pretest Chest Pain Characteristics: None. Exercise History: Indeterminate; pt. states that she walks 2-3 days/week. Physical Disabilities: None. Lung Sounds: Clear bilaterally throughout, anterior and posterior. Heart Sounds: Irregular; S1 and S2 auscultated. Stress Test Details Test: Exercise stress testing was performed using a Carter protocol. Nuclear Acquisition: Rest Tc-99m/Stress Tc-99m 1 day Rest Isotope: Tc-99m Sestamibi. Dose: 11.0 Date: 07/13/2024 Injection Time: 0845 Stress Isotope: Tc-99m Sestamibi. Dose: 36.0 Date: 07/13/2024 Injection Time: 1020 HR Resting HR Supine: 63 bpm Max Heart Rate (APMHR): 162.022711 bpm Resting HR Standin bpm Target HR (85% APMHR): 137.845619 bpm Max HR Achieved: 148 bpm % of APMHR: 91.36 Recovery HR: 80 bpm HR response to stress: Normal HR response to stress. BP Resting BP Supine: 174/102 mmHg Resting BP Standin/102 mmHg Max BP: 214/76 mmHg Recovery BP: 146/84 mmHg BP response to stress: Abnormal hypertensive response to stress. ECG Resting ECG: Sinus Rhythm. Ectopy: None. Stress ECG: Sinus Tachycardia. ST Change: No significant ST segment changes noted. Arrhythmia: None. Recovery ECG: Sinus Rhythm. Recovery ST Change: No significant ST segment changes noted. Recovery Arrhythmia: One PAC. Clinical Reason for Termination: Target HR Achieved. Stress Symptoms: None. Exercise duration: 05 min30 sec Highest Stage Reached: Stage 2: 2.5 mph at 12% grade. Exercise capacity: 7.05 METs Angina Score: None Schroeder Treadmill Score: 5.5 Rate Pressure Product: 98239 Stress ECG Conclusion 1. Resting electrocardiogram showed poor R wave progression 2. Patient exercised on the Carter protocol and completed workload of 7 METS 3. Normal heart rate and blood pressure response to exercise. The patient achieved 91% of maximum pr edicted heart rate for age 4. There was no electrocardiographic evidence of myocardial ischemia 5. See MPI report Schroeder Treadmill Score is 5.5 which is Low risk. Stress Test Summary STAGE Time (mins) Speed (mph) Grade (%) HR BP SpO2 SYMPTOMS METS Supine 63 174/102 98 Standing 68 152/102 98 1 3 1.7 10 125 95 4.5 2 6 2.5 12 148 95 7 1 min recovery 114 214/76 94 3 min recovery 85 180/90 98 6 min recovery 80 146/84 98 Pt. was conversing pleasantly with nursing staff upon leaving the Stress Lab. Pt. left ambulatory in no apparent distress. MPI Conclusion Myocardial perfusion is normal. There is no ischemia or evidence of prior infarction Calculated ejection fraction is 59% with normal wall motion Radiologist Interpretation Radiologist agrees with [place] Hat Blocker's Interpretation. Radiologist Interpretation by: Nawaf Sommers MD Interpretation Date/Time: 07/17/2024 19:27:01
== END 2024-07-13 00:55 ==
PROVIDERS: PCP Family Medicine; Visit Provider Family Medicine
DX: R79.89 Other specified abnormal findings of blood chemistry (principal)
CPT/HCPCS: 78452; 93017

== ENCOUNTER 2024-12-23 03:04 | Observation (INO) | payer BC, SELFPAY ==
[2024-12-23] VITALS (66 sets, daily range): BP systolic 82–159; BP diastolic 42–99; PULSE 71–186; RESP 11–21; TEMP 35.6–37.1; O2SAT 91–98
--- NOTE | 2024-12-23 03:00 | RT.EKG_ITS ---
APPROVED REPORT Exam: Resting ECG Reason for Exam: weakness Patient Location: E HR:80 bpm ECG Measurements Heart Rate 80 AXIS NV 178 P 82 QRSd 95 QRS -55 QT 416 T 57 QTc 480 Conclusion Sinus rhythm...normal P axis, V-rate 60- [address] segment or T wave abnormalities to suggest occlusive HI
--- NOTE | 2024-12-23 03:29 | ED.GENADUL_ITS ---
Discharge Plan Discharge Details Chief Complaint: Dizzy/Sync Clinical Impression: Shock, Acute hypotension Primary Care Provider: Britney Bond ED Provider: Florecita Alaniz Home Meds and New Rx's Prescriptions: No Action atorvastatin 20 mg tablet 20 mg PO QHS Qty: 90 3RF losartan 100 mg tablet 100 mg PO DAILY Qty: 90 3RF melatonin 3 mg tablet 3 mg PO HS nitroglycerin 0.4 mg tablet, sublingual 0.4 mg sublingual Q5M PRN (Reason: chest pain) Qty: 30 0RF Rx Instructions: do not exceed 3 doses per episode naproxen sodium [Aleve] 220 MG tablet 220 mg PO DAILY PRN Rx Instructions: for knee pain 1-2 x's weekly cgc albuterol sulfate 90 mcg/actuation HFA aerosol inhaler 2 puff inhalation Q6H PRN (Reason: shortness of breath or wheezing) Qty: 8.5 3RF mometasone 50 mcg/actuation spray,non-aerosol 2 spray NS BID Qty: 3 3RF HPI General Mode of arrival: EMS . Date/Time Provider Initiated Documentation: 12/23/24 03:12 . Limitations to Documentation: no limitations . Information obtained by: patient, EMS and old records reviewed (ED visit/hospital admission May 2024) . HPI Narrative: 59yo F with hx HTN, HLD, asthma, presenting via EMS for lightheadedness. Reports that just prior to calling EMS she began to feel unwell, flushed, 'itchy all over', and lightheaded like she was going to pass out. Went to the bathroom and had a small volume of yellowish loose stool; no further diarrhea since then. No nausea or vomiting. Has had similar episodes in the past but not usually this bad and usually associated with N/V/D. No chest pain or shortness of breath. No vertigo. Hypotensive for EMS in route, 80's/40's; received 500cc NS prior to arrival. Was admitted in May of last year for colitis and [id number]; states this feels a little bit like that. No history of anaphylaxis. No new medications or exposures. Otherwise in her usual state of health with no fevers, chills, rash, abdominal pain, dysuria, hematuria, numbness, tingling, weakness, headache, neck pain, or other concerns. Related Data Home Medications ?Medication ?Instructions ?Recorded ?Confirmed naproxen sodium 220 mg tablet 220 mg PO DAILY PRN 11/20/13 12/23/24 (Aleve) melatonin 3 mg tablet 3 mg PO HS 05/13/21 12/23/24 albuterol sulfate 90 mcg/actuation 2 puff inhalation Q6H PRN 10/18/23 12/23/24 aerosol inhaler shortness of breath or wheezing #8.5 grams atorvastatin 20 mg tablet 20 mg PO QHS #90 tabs 01/20/24 12/23/24 nitroglycerin 0.4 mg sublingual 0.4 mg sublingual Q5M PRN chest 06/29/24 12/23/24 tablet pain #30 tabs losartan 100 mg tablet 100 mg PO DAILY #90 tabs 08/08/24 12/23/24 mometasone 50 mcg/actuation nasal 2 spray NS BID #3 multiple units 09/22/24 12/23/24 spray Previous Rx's ?Medication ?Instructions ?Recorded albuterol sulfate 90 mcg/actuation 2 puff inhalation Q6H PRN 10/18/23 aerosol inhaler shortness of breath or wheezing #8.5 grams atorvastatin 20 mg tablet 20 mg PO QHS #90 tabs 01/20/24 nitroglycerin 0.4 mg sublingual 0.4 mg sublingual Q5M PRN chest 06/29/24 tablet pain #30 tabs losartan 100 mg tablet 100 mg PO DAILY #90 tabs 08/08/24 mometasone 50 mcg/actuation nasal 2 spray NS BID #3 multiple units 09/22/24 spray Allergies Allergy/AdvReac Type Severity Reaction Status Date / Time ropinirole AdvReac Intermediate Nausea Verified 12/23/24 03:13 hydrocodone (Hydrocodone) AdvReac Unknown itching Verified 12/23/24 03:13 General Stated Complaint: Dizzy/Sync KM: 2 Review of Systems Narrative: see HPI Exam Narrative Exam Narrative: General: Alert, pale Head: Normocephalic, atraumatic Neck: Trachea midline, ?Neck supple. ENT: ?MMM.? No oropharygeal lesions or exudate. Cardiac: ?RRR, no murmurs appreciated. Subtle cyanosis of lips. Resp: No respiratory distress. CTAB. Abd: ?Soft, non-distended, nontender : ?No suprapubic tenderness. Extremities: ?No deformities.? No peripheral edema. Neurologic: GCS 15. ? Moves all extremities freely against gravity Course Vital Signs Vital signs: Vital Signs Pulse 83 12/23/24 03:08 Respiratory Rate 18 12/23/24 03:08 Blood Pressure 82/42 L 12/23/24 03:08 Pulse Oximetry 91 L 12/23/24 03:08 Temperature Source Temporal Artery Scan 12/23/24 03:08 Pulse 83 12/23/24 03:08 Respiratory Rate 17 12/23/24 03:15 Respiratory Effort Normal, Non-Labored 12/23/24 03:15 Respiratory Depth Normal 12/23/24 03:15 Blood Pressure 82/42 L 12/23/24 03:08 Blood Pressure Position Supine 12/23/24 03:08 Pulse Oximetry 91 L 12/23/24 03:08 Oxygen Delivery Method Room Air 12/23/24 03:08 Oxygen Flow Rate 0 12/23/24 03:08 Medical Decision Making 59yo F with hx HTN, HLD, asthma, presenting via EMS for lightheadedness. Hypotensive for EMS, 500cc IVF prior to arrival. Hypotensive on arrival 82/42, pale, with some central cyanosis. Vital signs otherwise reassuring and normal O2 sat. Skin flushed, no hives. Not overtly septic, not suggestive of anaphalyxis, staphylococcal rash, SJS, CVA. No chest pain or shortness of breath. EKG on arrival NSR, appropriate intervals, no ST segment or T wave abnormalities to suggest occlusive NV. Given additional 1L IVFB with improvement in BP and symptoms however remains markedly symptomatic/lightheaded with standing, unable to tolerate full orthostatic vital signs. -Labs reviewed as below, CBC reassuring with no leukocytosis or anemia, CMP with hypokalemia to 3.1 (oral replacement ordered) with mildly elevated Cr at 1.2 and no other actionable abnormalities, Mg normal, lipase normal, coags normal, BNP not suggestive of heart failure, initial troponin <4 with one hour repeat 5. Dimer elevated; CT for PE ordered. UA with some WBC but not otherwise suggestive of infection and patient without urinary symptoms, not suggestive of UTI. On reassessment has received a total of 2.5L of IVF with improvement in BP and color, reports symptoms improving and now appears well. Fluid-responsive shock of unclear etiology. Signed out to oncoming physician, plan to followup CTA, 3 hour troponin, VBG, lactate, and reassess. Anticipate admission. Lab Data Lab results reviewed: Yes I reviewed the patient's lab results. Labs: 12/23/24 07:10 Blood Blood Culture - Pending 12/23/24 06:21 Urine - Reflex from Ua Urine Culture - Pending 12/23/24 03:28 Blood Blood Culture - Pending Laboratory Tests Range/Units 12/23/24 12/23/24 12/23/24 03:25 05:35 06:21 WBC (4.4-10.8) 10^3/uL 8.83 RBC (3.93-5.22) 10^6/uL 4.90 Hgb (11.2-15.7) g/dL 15.0 Hct (36.0-46.0) % 44.9 MCV (80-95) fL 92 MCH (27.0-33.0) pg 30.6 MCHC (32.0-36.0) % 33.4 RDW (11.7-14.6) % 13.4 Plt Count (130-400) 10^3/uL 193 MPV (8.0-11.0) fL 11.9 H Immature Gran % % 0.1 Neutrophils % % 46.9 Lymphocytes % % 48.4 Monocytes % % 3.3 Eosinophils % % 1.2 Basophils % % 0.1 Nucleated RBC % (0.0-0.3) % 0.0 Absolute Neutrophils (1.2-6.7) 10^3/uL 4.14 Absolute Lymphocytes (1.2-3.4) 10^3/uL 4.27 H Absolute Monocytes (0.1-0.8) 10^3/uL 0.29 Absolute Eosinophils (0.0-0.7) 10^3/uL 0.11 Absolute Basophils (0.0-0.2) 10^3/uL 0.01 PT (9.1-11.1) sec 10.7 INR (0.9-1.1) 1.1 APTT (20.6-30.2) sec 20.3 L D-Dimer (<500) ng/mlFEU 3784 H Sodium (136-145) mmol/L 145 Potassium (3.5-5.1) mmol/L 3.1 L Chloride (98-107) mmol/L 110 H Carbon Dioxide (21.0-32.0) mmol/L 24.0 Anion Gap (3-11) mmol/L 11.0 BUN (7-18) mg/dL 29 H Creatinine (0.55-1.02) mg/dL 1.2 H Est GFR (CKD-EPI 2020) (mL/min/1.73m2) 52.47 Glucose (74-106) mg/dL 184 H Calcium (8.5-10.1) mg/dL 8.5 Magnesium (1.8-2.4) mg/dL 1.8 Total Bilirubin (0.2-1.0) mg/dL 0.6 AST (15-37) U/L 13 L ALT (14-59) U/L 21 Alkaline Phosphatase (46-116) U/L 65 Troponin I (<or=51) ng/L < 4 5 NT-Pro-B Natriuret Pep (<300) pg/mL 25 Total Protein (6.4-8.2) g/dL 6.0 L Albumin (3.4-5.0) g/dL 3.4 Lipase (<78) U/L 39 Urine Color (Yellow) Yellow Urine Clarity (Clear) Clear Urine pH (5-8) 5.5 Ur Specific [place] (1.005-1.025) 1.015 Urine Protein (Neg-Trace) mg/dL 100 H Urine Ketones (Negative) mg/dL Negative Urine Blood (Negative) Trace-intact H Urine Nitrite (Negative) Negative Urine Bilirubin (Negative) Negative Urine Urobilinogen (Up to 0.2) mg/dL 0.2 Ur Leukocyte Esterase (Negative) Small H Urine RBC (0-2) HPF 0-2 Urine WBC (0-5) HPF 10-20 H Ur Epithelial Cells (Negative) HPF Few Urine Crystals (Negative) HPF Negative Urine Bacteria (Negative) HPF Rare Urine Casts (Negative) LPF 0-2 Hyaline Urine Mucus (Negative) Trace Ur Culture Indicated? Yes Urine Glucose (Negative) mg/dL Negative Range/Units 12/23/24 07:10 WBC (4.4-10.8) 10^3/uL RBC (3.93-5.22) 10^6/uL Hgb (11.2-15.7) g/dL Hct (36.0-46.0) % MCV (80-95) fL MCH (27.0-33.0) pg MCHC (32.0-36.0) % RDW (11.7-14.6) % Plt Count (130-400) 10^3/uL MPV (8.0-11.0) fL Immature Gran % % Neutrophils % % Lymphocytes % % Monocytes % % Eosinophils % % Basophils % % Nucleated RBC % (0.0-0.3) % Absolute Neutrophils (1.2-6.7) 10^3/uL Absolute Lymphocytes (1.2-3.4) 10^3/uL Absolute Monocytes (0.1-0.8) 10^3/uL Absolute Eosinophils (0.0-0.7) 10^3/uL Absolute Basophils (0.0-0.2) 10^3/uL PT (9.1-11.1) sec INR (0.9-1.1) APTT (20.6-30.2) sec D-Dimer (<500) ng/mlFEU Sodium (136-145) mmol/L Potassium (3.5-5.1) mmol/L Chloride (98-107) mmol/L Carbon Dioxide (21.0-32.0) mmol/L Anion Gap (3-11) mmol/L BUN (7-18) mg/dL Creatinine (0.55-1.02) mg/dL Est GFR (CKD-EPI 2020) (mL/min/1.73m2) Glucose (74-106) mg/dL Calcium (8.5-10.1) mg/dL Magnesium (1.8-2.4) mg/dL Total Bilirubin (0.2-1.0) mg/dL AST (15-37) U/L ALT (14-59) U/L Alkaline Phosphatase (46-116) U/L Troponin I (<or=51) ng/L 11 NT-Pro-B Natriuret Pep (<300) pg/mL Total Protein (6.4-8.2) g/dL Albumin (3.4-5.0) g/dL Lipase (<78) U/L Urine Color (Yellow) Urine Clarity (Clear) Urine pH (5-8) Ur Specific [place] (1.005-1.025) Urine Protein (Neg-Trace) mg/dL Urine Ketones (Negative) mg/dL Urine Blood (Negative) Urine Nitrite (Negative) Urine Bilirubin (Negative) Urine Urobilinogen (Up to 0.2) mg/dL Ur Leukocyte Esterase (Negative) Urine RBC (0-2) HPF Urine WBC (0-5) HPF Ur Epithelial Cells (Negative) HPF Urine Crystals (Negative) HPF Urine Bacteria (Negative) HPF Urine Casts (Negative) LPF Urine Mucus (Negative) Ur Culture Indicated? Urine Glucose (Negative) mg/dL Quality:SDOH Health Related Social Needs: No Data to Display Critical Care Time Critical Care Time Critical Care Time: Yes Total Critical Care Time: 32 Attestation: Due to a high probability of clinically significant, life threatening deteriorat ion, the patient required my highest level of preparedness to intervene emergently and I personally spent this critical care time directly and personally managing the patient. This critical care time included obtaining a history; examining the patient; pulse oximetry; ordering and review of studies; arranging urgent treatment with development of a management plan; evaluation of patient's response to treatment; frequent reassessment; and, discussions with other providers. This critical care time was performed to assess and manage the high probability of imminent, life-threatening deterioration that could result in multi-organ failure. It was exclusive of separately billable procedures and treating other patients PFSH All Active Problems (Updated 12/23/24 @ 08:03 by Florecita Alaniz MD) Acute hypotension (Acute) Shock (Acute) Myofascial pain on left side (Acute) Chronic left shoulder pain (Chronic) Primary osteoarthritis of left shoulder (Acute) C. 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) Restless legs (01/02/14) did not tolerate meds Obstructive sleep apnea syndrome (08/29/13) sleep study 08/09/13 Untreated, would not tolerate CPAP Obesity (08/29/13) Non-seasonal allergic rhinitis (01/19/18) Iron deficiency (09/25/15) Impaired fasting blood sugar (09/25/15) Family history of diabetes mellitus (09/25/15) Asthma (12/20/12) Tubular adenoma of colon SARS-CoV-2 positive (02/25/22) Deltoid bursitis Left arm pain Hyperlipidemia No-show for appointment Tendinitis of long head of biceps brachii of left shoulder Bursitis of left shoulder Impingement syndrome of left shoulder Iron deficiency Obesity (BMI 30-39.9) Asthma Restless legs Non-seasonal allergic rhinitis GETEHA (obstructive sleep apnea) Surgical History (Updated 12/25/21 @ 13:08 by Alissa England RN) H/O arthroscopic knee surgery Colonoscopy - MAC (04/08/18) 11/2021 Family History Mother , ALS at age 51. No problems noted. Father Diabetes Essential hypertension COPD (chronic obstructive pulmonary disease) Asthma Social History (Updated 01/20/24 @ 15:53 by Sarah Gunn) Smoking/Tobacco Use Status: Never Second Hand Exposure: No Smoking risk assessment performed?: Yes Alcohol Intake: current Alcohol Intake frequency: holidays/special occasions only Alcohol type: wine Drug use: Never Substance use type: does not use Adopted: No Caregiver/Support person: No Foster care: No Household members: spouse Housing: house Number of Children: 4 number of grandchildren: 8 Communication Needs: None Education Level: high school Do you need help understanding health information?: Never 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 Pets and animals: Yes (1) Pets and animals: dog(s) Sexually active: Yes Do you think of yourself as: straight/heterosexual Current gender identity: female What is your relationship status?: How often do you talk on the phone with friends or family?: three or more times per week How often do you get together with friends or relatives?: three or more times per week Do you belong to any clubs or organized social groups?: no Panel score (0-1 are the most socially isolated patients): 2 Johanna/Restorationism: Quaker Special johanna needs: No Seatbelt use: always Helmet use: No (N/A) Drive intox or ride w/intox auto carrier driver: No Do you feel safe at home: Yes Do you feel safe in your relationship?: Yes
[2024-12-23 03:42] LABS: Abs Immature Grans 0.01 10^3/uL (0.0-0.06); Absolute Basophil Count 0.01 10^3/uL (0.0-0.2); Absolute Eosinophil Count 0.11 10^3/uL (0.0-0.7); Absolute Lymphocyte Count 4.27 10^3/uL (1.2-3.4); Absolute Monocyte Count 0.29 10^3/uL (0.1-0.8); Absolute Neutrophil Count 4.14 10^3/uL (1.2-6.7); Basophils % 0.1 %; Eosinophils % 1.2 %; HCT 44.9 % (36.0-46.0); Immature Grans % 0.1 %; Lymphocytes % 48.4 %; MCH 30.6 pg (27.0-33.0); MCHC 33.4 % (32.0-36.0); MCV 92 fL (80-95); MPV 11.9 fL (8.0-11.0); Monocytes % 3.3 %; Neutrophils % 46.9 %; Platelet Count 193 10^3/uL (130-400); RDW 13.4 % (11.7-14.6); RDW-SD 45.2 fL; WBC 8.83 10^3/uL (4.4-10.8)
[2024-12-23 03:51] LABS: INR 1.1 (0.9-1.1); PTT Activated 20.3 sec (20.6-30.2); Prothrombin Time 10.7 sec (9.1-11.1)
[2024-12-23 04:02] LABS: D-Dimer 3784 ng/mlFEU (<500)
[2024-12-23 04:14] LABS: ALT 21 U/L (14-59); AST 13 U/L (15-37); Albumin 3.4 g/dL (3.4-5.0); Alkaline Phosphatase 65 U/L (46-116); BUN 29 mg/dL (7-18); Bilirubin, Total 0.6 mg/dL (0.2-1.0); CREATININE 1.2 mg/dL (0.55-1.02); Calcium 8.5 mg/dL (8.5-10.1); Chloride 110 mmol/L (98-107); Estimated GFR 52.47 (mL/min/1.73m2); Glucose 184 mg/dL (74-106); Lipase 39 U/L (<78); Magnesium 1.8 mg/dL (1.8-2.4); NT-proBNP 25 pg/mL (<300); Potassium 3.1 mmol/L (3.5-5.1); Sodium 145 mmol/L (136-145); Troponin I < 4 ng/L (<or=51)
--- NOTE | 2024-12-23 04:15 | DI.CT_ITS ---
Exam(s) CT CHEST PE CTA EXAM: CT CHEST PE CTA CLINICAL HISTORY: + dimer, hypotensive. TECHNIQUE: Imaging Protocol: Axial CT angiography was performed with multi-slice acquisition and mu lti-planar and/or 3D reconstructions. Lung Computer Aided Detection (CAD) was utilized. CONTRAST MATERIAL: Intravenous: Omnipaque 350 contrast volume:100 mL COMPARISON: CT CT ABDOMEN PELVIS CTA from 06/11/2024 CR,XR XR CHEST 2V PA LATERAL from 12/23/2024 FINDINGS: Tracheobronchial tree: Patent where visualized. No bronchiectasis. Pulmonary parenchyma: There is atelectasis seen in the lung bases. No focal consolidating infiltrate s are seen. No architectural distortion. Pulmonary Arteries: No evidence of filling defect to suggest pulmonary emboli. Mediastinum and Melissa: No dominant adenopathy or fluid collection. The esophagus is unremarkable. Visualized thyroid gland: Unremarkable. Pleura: No effusion or pneumothorax. Heart: The heart is not dilated. No coronary artery calcifications are seen. No pericardial effusion. Aorta: Thoracic aorta non-dilated. No evidence of dissection. Upper abdomen: Unremarkable. Soft tissues: Unremarkable. Bones: Within normal limits for the patient's age. IMPRESSION: 1. No evidence of pulmonary embolism, thoracic aortic dissection or aneurysm. 2. Atelectatic changes in the lung bases. RADIATION DOSE DELIVERED: 137.46mGy.cm Total DLP DATA REPOSITORY: All CT scans at this facility are submitted to the National Radiology Data Registry (NRDR) Dose Index Registry (DIR) with the [employer] (ACR). RADIATION OPTIMIZATION: All CT scans at this facility use at least one of these dose optimization te chniques: automated exposure control; mA and/or kV adjustment per patient size (includes targeted exa ms where dose is matched to clinical indication); or iterative reconstruction.
--- NOTE | 2024-12-23 04:52 | DI.[facility]_ITS ---
PROCEDURE INFORMATION: Exam: XR Chest Exam date and time: 12/23/2024 4:19 AM Age: 59 years old Clinical indication: Other: Hypotension TECHNIQUE: Imaging protocol: Radiologic exam of the chest. Views: 2 views. COMPARISON: No relevant prior studies are available for comparison. FINDINGS: Lungs: No focal consolidation seen. Pleural spaces: No large pleural effusion seen. Heart/Mediastinum: No cardiomegaly. Bones/joints: No acute abnormality. IMPRESSION: No acute findings to explain reported symptoms. Dictated and Authenticated by: Melva Canales MD. Orderin Katty Bernabe MD
[2024-12-23] MEDS: Normal Saline 1,000 ML 1000 ML IV ×2 (05:24)
[2024-12-23] MEDS: Potassium Chloride 10 MEQ CAPCR 40 MEQ PO (05:53)
[2024-12-23 06:00] LABS: Troponin I 5 ng/L (<or=51)
[2024-12-23 06:31] LABS: Bilirubin Negative (Negative); Blood Trace-intact (Negative); Clarity Clear (Clear); Glucose Negative (Negative); Ketones Negative (Negative); Leukocyte Esterase Small (Negative); Nitrite Negative (Negative); Specific Gravity 1.015 (1.005-1.025); Urobilinogen 0.2 mg/dL (Up to 0.2); pH 5.5 (5-8)
--- NOTE | 2024-12-23 06:33 | DI.RAD_ITS ---
Exam(s) XR CHEST 2V PA LATERAL EXAM: XR CHEST 2V PA LATERAL CLINICAL HISTORY: hypotension TECHNIQUE: 2D digital imaging was performed of the chest. Two images were obtained. AP and lateral views were obtained. COMPARISON: CR CHEST 2 VIEWS PA,LAT from 04/30/2009 CR CHEST 2 VIEWS PA,LAT from 03/10/2010 FINDINGS: MEDIASTINUM: Normal. HEART: Normal. PULMONARY VASCULATURE: Normal. LUNGS: Clear. PLEURAL SPACE: No pleural effusion or pneumothorax. BONE:Within normal limits for the patient's age. OTHER FINDINGS:Normal. IMPRESSION: 1. No acute pulmonary findings. 2. The preliminary [facility] report was reviewed. DATA REPOSITORY: RADIATION DOSE DELIVERED:
[2024-12-23 06:38] LABS: Bacteria Rare HPF (Negative); C & S Indicated? Yes; Casts 0-2 Hyaline LPF (Negative); Crystals Negative HPF (Negative); Epithelial Cells Few HPF (Negative); Mucus Trace (Negative); RBC 0-2 HPF (0-2)
[2024-12-23 07:38] LABS: Troponin I 11 ng/L (<or=51)
[2024-12-23] MEDS: Omnipaque 350 MG/ML 100 ML BTL IJ (07:39)
[2024-12-23] MEDS: Normal Saline - Diluent 50 ML VIAL IJ (07:39)
--- NOTE | 2024-12-23 08:28 | ED.PROG_ITS ---
Date of service: 12/23/24 Time of Service: 08:29 Medical Decision Making Care assumed from outgoing provider. Patient is a 59-year-old female brought in by EMS with severe hypotension and signs of shock. Patient was noted to have significant hypotension and cyanosis. She has been resuscitated with 3 L of IV fluids. Lab work was reviewed. She does have a significantly elevated D-dimer. Potassium was low at 3.1 which was repleted. She has an CARLOS of 1.2, but no clear etiology for volume depletion. Will still symptomatically orthostatic and unable to stand without assistance. No significant signs of infection on urinalysis though culture has been sent. Antibiotics have not been given. Cultures have been drawn. A CTA was ordered to evaluate for pulmonary embolism and this report was reviewed and it was unremarkable for any acute process. Patient admitted to the hospitalist for further management of the severe symptoms without clear etiology. Quality:[facility] Health Related Social Needs: No Data to Display Discharge Plan Disposition Patient Disposition: Admit to [facility] Discharge Details Clinical Impression: Shock, Acute hypotension Primary Care Provider: Britney Bond ED Provider: Rm Wall Home Meds and New Rx's Prescriptions: No Action atorvastatin 20 mg tablet 20 mg PO QHS Qty: 90 3RF losartan 100 mg tablet 100 mg PO DAILY Qty: 90 3RF melatonin 3 mg tablet 3 mg PO HS nitroglycerin 0.4 mg tablet, sublingual 0.4 mg sublingual Q5M PRN (Reason: chest pain) Qty: 30 0RF Rx Instructions: do not exceed 3 doses per episode naproxen sodium [Aleve] 220 MG tablet 220 mg PO DAILY PRN Rx Instructions: for knee pain 1-2 x's weekly cgc albuterol sulfate 90 mcg/actuation HFA aerosol inhaler 2 puff inhalation Q6H PRN (Reason: shortness of breath or wheezing) Qty: 8.5 3RF mometasone 50 mcg/actuation spray,non-aerosol 2 spray NS BID Qty: 3 3RF
[2024-12-23 08:40] LABS: BE (Venous) -3 mmol/L (-2-3); HCO3 (Venous) 23 mmol/L (23-28); Lactate 1.7 mmol/L (<or=2.0); O2 Sat (Venous) 67 %; TCO2 (Venous) 21 mmol/L (24-29); pCO2 (Venous) 44 mmHg (41-51); pH (Venous) 7.32 (7.31-7.41); pO2 (Venous) 36 mmHg
--- NOTE | 2024-12-23 09:03 | W.PM.HP.N ---
Date of service: 12/23/24 Time of Service: 09:07 Assessment and Plan Assessment and plan (1) Acute hypotension: Status: Acute Assessment and plan: Undifferentiated acute hypotension. Responded to fluids in the ED, but continues to feel orthostatic No clear source of infection/sepsis Initially possibly c/w vagal reaction but hypotension lasted hours and symptoms persist, not c/w vagal I agree with holding antibiotics for now. U/a slight pyuria but no urinary symptoms. Empiric antibiotics risky with recent c. diff infection. She does have a history of elevated troponins in setting of C diff infection 06/22 with similar symptoms on presentation. Follow up stress/MPI 07/23 was normal. Current EKG/troponins are reassuring, Send cortisol, but low potassium not c/w adrenal insufficiency See below re: carcinoid work up holding ARB Will observe overnight. She should have an echo given these recurrent episodes, either inpatient Wednesday or outpatient if she clinically improves, home with cardiac cath tech as well. (2) Acute kidney injury: Status: Acute Assessment and plan: Cr up from 0.8 to 1.2 in setting of hypotension, follow this afternoon after fluids. Hold ARB. (3) Flushing: Status: Acute Assessment and plan: Recurrent itching and flushing, triggered by eating at times, and associated with diarrhea raise possibilty of carcinoid syndrome. If cardiac involvement this could explain hypotension as well. I think worth getting 24 hr urine for 5HIAA to start. (4) Asthma: Assessment and plan: not active recently Has prn albuterol. (5) Hypokalemia: Status: Resolved Assessment and plan: both recent hospitalizations had low potassium, this despite ARB use. However she is not chronically low. Acute lows may simply be secondary to endogenous adrenaline when she is acutely ill. Supplemented orally, will follow. 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 difficile infection who presented overnight with generalized weakness and itching and was found to be hypotensive to 82/42 on presentation. She felt well last night, ate normal dinner of hot dog with relish. Woke up at 1:30 am and her hands felt itchy, and this sensation spread to her whole body. She then had to move her bowels, had 3 small loose stools. After each loose stool she felt weaker, lightheaded. By the third she couldn't stand up off the toilet she was so weak. She barely remembers EMS coming, was there helping her. She was nauseous but did not vomit. She was flushed and red all over. Her body itched but did not get numb or weak. She was cold. Her hands got blue, ED clinician noted peripheral and perioral cyanosis as well. Her symptoms persisted until she was on the third bag of fluid. Since then she has felt better. No further stools. No fevers. Of note she was admitted 06/12- with similar presyncopal symptoms and hypokalemia, but in that case she had elevated troponin and diarrhea that was c. difficile positive. She felt better by the next day and was treated with a course of oral vancomycin for 9 days after one day of Dificid inpatient. Cardiac stress/MPI done in follow up a month later was reassuring. Also of note her losartan was increased from 50 to 100mg at her last PCP visit 08/08/24 She gets the hand itching and flushing intermittently over the past several months. Seems to be related to eating, though she hasn't noticed certain foods trigger. She has never had food allergies. Sometimes a/w loose stool. PFSH All Active Problems (Updated 12/23/24 @ 15:09 by Suman Hernandez) Flushing (Acute) DVT prophylaxis (Acute) Acute kidney injury (Acute) Acute hypotension (Acute) Shock (Acute) Myofascial pain on left side (Acute) Chronic left shoulder pain (Chronic) Primary osteoarthritis of left shoulder (Acute) Elevated troponin (Acute) Essential hypertension (Acute) Medical History C. difficile colitis Obesity, class 3 No-show for appointment Hyperlipidemia Left arm pain Impingement syndrome of left shoulder Bursitis of left shoulder Tendinitis of long head of biceps brachii of left shoulder Deltoid bursitis SARS-CoV-2 positive (02/25/22) Tubular adenoma of colon Complex tear of medial meniscus of right knee as current injury Steroid injection: 09/11/2022; 06/09/2021 Elevated blood pressure reading without diagnosis of hypertension Knee pain, right Restless legs (01/02/14) did not tolerate meds Obstructive sleep apnea syndrome (08/29/13) sleep study 08/09/13 Untreated, would not tolerate CPAP Non-seasonal allergic rhinitis (01/19/18) Iron deficiency (09/25/15) Impaired fasting blood sugar (09/25/15) Family history of diabetes mellitus (09/25/15) Asthma (12/20/12) Asthma Restless legs GEETHA (obstructive sleep apnea) Surgical History H/O arthroscopic knee surgery Colonoscopy - MAC (04/08/18) 11/2021 Family History Mother , ALS at age 51. No problems noted. Father Diabetes Essential hypertension COPD (chronic obstructive pulmonary disease) Asthma Social History Smoking/Tobacco Use Status: Never Second Hand Exposure: No Smoking risk assessment performed?: Yes Alcohol Intake: current Alcohol Intake frequency: holidays/special occasions only Alcohol type: wine Drug use: Never Substance use type: does not use Adopted: No Caregiver/Support person: No Foster care: No Household members: spouse Housing: house Number of Children: 4 number of grandchildren: 8 Communication Needs: None Education Level: high school Do you need help understanding health information?: Never 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 Pets and animals: Yes (1) Pets and animals: dog(s) Sexually active: Yes Do you think of yourself as: straight/heterosexual Current gender identity: female What is your relationship status?: How often do you talk on the phone with friends or family?: three or more times per week How often do you get together with friends or relatives?: three or more times per week Do you belong to any clubs or organized social groups?: no Panel score (0-1 are the most socially isolated patients): 2 Johanna/Sabianist: Jew Special johanna needs: No Seatbelt use: always Helmet use: No (N/A) Drive intox or ride w/intox medical delivery driver: No Do you feel safe at home: Yes Do you feel safe in your relationship?: Yes Meds Allergies and Home Medications Allergies Allergy/AdvReac Type Severity Reaction Status Date / Time ropinirole AdvReac Intermediate Nausea Verified 12/23/24 03:13 hydrocodone (Hydrocodone) AdvReac Unknown itching Verified 12/23/24 03:13 Home Medications ?Medication ?Instructions ?Recorded ?Confirmed ?Type naproxen sodium 220 mg tablet 220 mg PO DAILY PRN 11/20/13 12/23/24 History (Aleve) melatonin 3 mg tablet 3 mg PO HS 05/13/21 12/23/24 History albuterol sulfate 90 mcg/actuation 2 puff inhalation Q6H PRN 10/18/23 12/23/24 Rx aerosol inhaler shortness of breath or wheezing #8.5 grams atorvastatin 20 mg tablet 20 mg PO QHS #90 tabs 01/20/24 12/23/24 Rx nitroglycerin 0.4 mg sublingual 0.4 mg sublingual Q5M PRN chest 06/29/24 12/23/24 Rx tablet pain #30 tabs losartan 100 mg tablet 100 mg PO DAILY #90 tabs 08/08/24 12/23/24 Rx mometasone 50 mcg/actuation nasal 2 spray NS BID #3 multiple units 09/22/24 12/23/24 Rx spray Exam Narrative Exam Narrative: GEN: Alert and oriented x 4, pleasant and cooperative, gives linear history. No acute distress at rest. HEENT: Head atraumatic. Conjunctiva clear, no icterus. PEERL, EOMI. no rhinorrhea. MMM, OP benign. Neck is supple with no masses or lymphadenopathy, trachea midline LUNGS: CTAB with normal effort CV: RRR with no murmurs, gallops, or rubs. ABD: active bowel sounds, soft, nontender and nondistended. No masses. EXT: no cyanosis, clubbing, or edema MSK: No joint redness or swelling NEURO: CN 2-12 grossly intact. Normal movement of 4 extremities. Normal speech and coordination. No tremor SKIN: 4mm scab on nasal bridge. pink patch on chin. No rashes or open wounds. no striea or telangectasia. no hives. PSYCH: normal mood and affect, normal thought process. Results Imaging CT scan - chest: report reviewed (1. No evidence of pulmonary embolism, thoracic aortic dissection or aneurysm. 2. Atelectatic changes in the lung bases.) EKG: report reviewed and image reviewed (NSR, left axis, normal intervals, no ischemic ST-T changes) Labs 12/23/24 03:25 12/23/24 14:00 Labs: Laboratory Results - last 24 hr 12/23/24 12/23/24 12/23/24 03:25 05:35 06:21 WBC 8.83 RBC 4.90 Hgb 15.0 Hct 44.9 MCV 92 MCH 30.6 MCHC 33.4 RDW 13.4 Plt Count 193 MPV 11.9 H Immature Gran % 0.1 Neutrophils % 46.9 Lymphocytes % 48.4 Monocytes % 3.3 Eosinophils % 1.2 Basophils % 0.1 Nucleated RBC % 0.0 Absolute Neutrophils 4.14 Absolute Lymphocytes 4.27 H Absolute Monocytes 0.29 Absolute Eosinophils 0.11 Absolute Basophils 0.01 PT 10.7 INR 1.1 APTT 20.3 L D-Dimer 3784 H VBG pH VBG pCO2 VBG pO2 VBG HCO3 VBG Total CO2 VBG O2 Saturation VBG Base Excess VBG Lactate Sodium 145 Potassium 3.1 L Chloride 110 H Carbon Dioxide 24.0 Anion Gap 11.0 BUN 29 H Creatinine 1.2 H Est GFR (CKD-EPI 2020) 52.47 Glucose 184 H Calcium 8.5 Magnesium 1.8 Total Bilirubin 0.6 AST 13 L ALT 21 Alkaline Phosphatase 65 Troponin I < 4 5 NT-Pro-B Natriuret Pep 25 Total Protein 6.0 L Albumin 3.4 Lipase 39 Urine Color Yellow Urine Clarity Clear Urine pH 5.5 Ur Specific [place] 1.015 Urine Protein 100 H Urine Ketones Negative Urine Blood Trace-intact H Urine Nitrite Negative Urine Bilirubin Negative Urine Urobilinogen 0.2 Ur Leukocyte Esterase Small H Urine RBC 0-2 Urine WBC 10-20 H Ur Epithelial Cells Few Urine Crystals Negative Urine Bacteria Rare Urine Casts 0-2 Hyaline Urine Mucus Trace Ur Culture Indicated? Yes Urine Glucose Negative 12/23/24 12/23/24 07:10 08:35 WBC RBC Hgb Hct MCV MCH MCHC RDW Plt Count MPV Immature Gran % Neutrophils % Lymphocytes % Monocytes % Eosinophils % Basophils % Nucleated RBC % Absolute Neutrophils Absolute Lymphocytes Absolute Monocytes Absolute Eosinophils Absolute Basophils PT INR APTT D-Dimer VBG pH 7.32 VBG pCO2 44 VBG pO2 36 VBG HCO3 23 VBG Total CO2 21 L VBG O2 Saturation 67 VBG Base Excess -3 L VBG Lactate 1.7 Sodium Potassium Chloride Carbon Dioxide Anion Gap BUN Creatinine Est GFR (CKD-EPI 2020) Glucose Calcium Magnesium Total Bilirubin AST ALT Alkaline Phosphatase Troponin I 11 NT-Pro-B Natriuret Pep Total Protein Albumin Lipase Urine Color Urine Clarity Urine pH Ur Specific [place] Urine Protein Urine Ketones Urine Blood Urine Nitrite Urine Bilirubin Urine Urobilinogen Ur Leukocyte Esterase Urine RBC Urine WBC Ur Epithelial Cells Urine Crystals Urine Bacteria Urine Casts Urine Mucus Ur Culture Indicated? Urine Glucose Last Vital Signs Temp 36.1 C L 12/23/24 03:08 Pulse 73 12/23/24 08:40 Resp 19 12/23/24 08:40 BP 129/78 12/23/24 08:01 Pulse Ox 95 12/23/24 08:40 Time Spent Time spent with Patient: 55-74 minutes Time was spent: preparing to see the patient(eg.review tests), obtaining and/or reviewing separately otained hiistory, ordering medications,tests, procedures, referring, communicating with other health medical care evaluation specialist, indepentently interpreting results, counseling the patient and care coordination
[2024-12-23] MEDS: Enoxaparin 40 MG/0.4 ML SYR SC ×2 (10:34→22:45)
--- NOTE | 2024-12-23 10:58 | W.PC.ACHO ---
Registration Status: Primary Language: Preferred Language: ED Information & Data Chief Complaint Dizzy/Sync 12/23/24 03:30 Triage Note BIBEMS s/p began feeling 12/23/24 03:08 dizzy and lightheaded, called EMS ~0200. Started w/ feeling itchy all over and flushed/red skin. Pt has had similar episodes prior, but associated w/ N/V and diarrhea. None of these sxs currently. hypotensive enroute. Medical / Surgical History (Last Reviewed 12/23/24 @ 09:37 by Suman Hernandez) Obesity, class 3 C. difficile colitis Complex tear of medial meniscus of right knee as current injury Elevated blood pressure reading without diagnosis of hypertension Knee pain, right Restless legs (01/02/14) Obstructive sleep apnea syndrome (08/29/13) Non-seasonal allergic rhinitis (01/19/18) Iron deficiency (09/25/15) Impaired fasting blood sugar (09/25/15) Family history of diabetes mellitus (09/25/15) Asthma (12/20/12) Tubular adenoma of colon SARS-CoV-2 positive (02/25/22) Deltoid bursitis Left arm pain Hyperlipidemia No-show for appointment Tendinitis of long head of biceps brachii of left shoulder Bursitis of left shoulder Impingement syndrome of left shoulder Asthma Restless legs GEETHA (obstructive sleep apnea) (Last Reviewed 12/23/24 @ 09:37 by Suman Hernandez) H/O arthroscopic knee surgery Colonoscopy - MAC (04/08/18) Most Recent Vital Signs Temperature 36.6 C 12/23/24 10:34 Temperature Source Temporal Artery Scan 12/23/24 03:08 Pulse 71 12/23/24 10:34 Pulse Rhythm Regular 12/23/24 10:34 Pulse 78 12/23/24 09:50 Respiratory Rate 18 12/23/24 10:34 Respiratory Effort Normal 12/23/24 10:34 Respiratory Depth Normal 12/23/24 10:34 Respiratory Pattern Normal 12/23/24 10:34 Blood Pressure 148/93 H 12/23/24 10:34 Blood Pressure Mean 99 12/23/24 09:01 Blood Pressure Position Supine 12/23/24 03:08 Pulse Oximetry 97 12/23/24 10:34 Oxygen Delivery Method Room Air 12/23/24 10:34 Oxygen Flow Rate 0 12/23/24 10:34 Pain Level 0 12/23/24 10:34 Allergies ropinirole Adverse Reaction (Intermediate, Verified 12/23/24 03:13) Nausea hydrocodone (Hydrocodone) Adverse Reaction (Unknown, Verified 12/23/24 03:13) itching Precautions Isolation Standard precaution 12/23/24 03:15 Active Medications Generic Name Dose Route Start Last Admin Trade Name Tereza PRN Reason Stop Dose Admin Enoxaparin Sodium 40 mg 12/23/24 10:00 12/23/24 10:34 Enoxaparin 40 Mg/0.4 Ml Syr SC 40 mg Q12H PALAK Administration IV IV Catheter Type [Left Forearm Saline Lock ] IV Catheter Type [Left Hand] Saline Lock IV Catheter Gauge [Left 18 Forearm] IV Catheter Gauge [Left Hand] 20 Diet Orders Category Date Time Status Regular/Normal [DIET] Nutrition 12/23/24 Lunch Active Diagnostics 12/23/24 12/23/24 12/23/24 Range/Units 14:00 08:35 07:10 WBC (4.4-10.8) 10^3/uL RBC (3.93-5.22) 10^6/uL Hgb (11.2-15.7) g/dL Hct (36.0-46.0) % MCV (80-95) fL MCH (27.0-33.0) pg MCHC (32.0-36.0) % RDW (11.7-14.6) % Plt Count (130-400) 10^3/uL MPV (8.0-11.0) fL Immature Gran % % Neutrophils % % Lymphocytes % % Monocytes % % Eosinophils % % Basophils % % Nucleated RBC % (0.0-0.3) % Absolute Neutrophils (1.2-6.7) 10^3/uL Absolute Lymphocytes (1.2-3.4) 10^3/uL Absolute Monocytes (0.1-0.8) 10^3/uL Absolute Eosinophils (0.0-0.7) 10^3/uL Absolute Basophils (0.0-0.2) 10^3/uL PT (9.1-11.1) sec INR (0.9-1.1) APTT (20.6-30.2) sec D-Dimer (<500) ng/mlFEU VBG pH 7.32 (7.31-7.41) VBG pCO2 44 (41-51) mmHg VBG pO2 36 mmHg VBG HCO3 23 (23-28) mmol/L VBG Total CO2 21 L (24-29) mmol/L VBG O2 Saturation 67 % VBG Base Excess -3 L (-2-3) mmol/L VBG Lactate 1.7 (<or=2.0) mmol/L Sodium Pending (136-145) mmol/L Potassium Pending (3.5-5.1) mmol/L Chloride Pending (98-107) mmol/L Carbon Dioxide Pending (21.0-32.0) mmol/L Anion Gap Pending (3-11) mmol/L BUN Pending (7-18) mg/dL Creatinine Pending (0.55-1.02) mg/dL Est GFR (CKD-EPI 2020) Pending (mL/min/1.73m2) Glucose Pending (74-106) mg/dL Calcium Pending (8.5-10.1) mg/dL Magnesium (1.8-2.4) mg/dL Total Bilirubin (0.2-1.0) mg/dL AST (15-37) U/L ALT (14-59) U/L Alkaline Phosphatase (46-116) U/L Troponin I 11 (<or=51) ng/L NT-Pro-B Natriuret Pep (<300) pg/mL Total Protein (6.4-8.2) g/dL Albumin (3.4-5.0) g/dL Lipase (<78) U/L Cortisol Urine Color (Yellow) Urine Clarity (Clear) Urine pH (5-8) Ur Specific [place] (1.005-1.025) Urine Protein (Neg-Trace) mg/dL Urine Ketones (Negative) mg/dL Urine Blood (Negative) Urine Nitrite (Negative) Urine Bilirubin (Negative) Urine Urobilinogen (Up to 0.2) mg/dL Ur Leukocyte Esterase (Negative) Urine RBC (0-2) HPF Urine WBC (0-5) HPF Ur Epithelial Cells (Negative) HPF Urine Crystals (Negative) HPF Urine Bacteria (Negative) HPF Urine Casts (Negative) LPF Urine Mucus (Negative) Ur Culture Indicated? Urine Glucose (Negative) mg/dL 12/23/24 12/23/24 12/23/24 Range/Units 06:21 05:35 03:25 WBC 8.83 (4.4-10.8) 10^3/uL RBC 4.90 (3.93-5.22) 10^6/uL Hgb 15.0 (11.2-15.7) g/dL Hct 44.9 (36.0-46.0) % MCV 92 (80-95) fL MCH 30.6 (27.0-33.0) pg MCHC 33.4 (32.0-36.0) % RDW 13.4 (11.7-14.6) % Plt Count 193 (130-400) 10^3/uL MPV 11.9 H (8.0-11.0) fL Immature Gran % 0.1 % Neutrophils % 46.9 % Lymphocytes % 48.4 % Monocytes % 3.3 % Eosinophils % 1.2 % Basophils % 0.1 % Nucleated RBC % 0.0 (0.0-0.3) % Absolute Neutrophils 4.14 (1.2-6.7) 10^3/uL Absolute Lymphocytes 4.27 H (1.2-3.4) 10^3/uL Absolute Monocytes 0.29 (0.1-0.8) 10^3/uL Absolute Eosinophils 0.11 (0.0-0.7) 10^3/uL Absolute Basophils 0.01 (0.0-0.2) 10^3/uL PT 10.7 (9.1-11.1) sec INR 1.1 (0.9-1.1) APTT 20.3 L (20.6-30.2) sec D-Dimer 3784 H (<500) ng/mlFEU VBG pH (7.31-7.41) VBG pCO2 (41-51) mmHg VBG pO2 mmHg VBG HCO3 (23-28) mmol/L VBG Total CO2 (24-29) mmol/L VBG O2 Saturation % VBG Base Excess (-2-3) mmol/L VBG Lactate (<or=2.0) mmol/L Sodium 145 (136-145) mmol/L Potassium 3.1 L (3.5-5.1) mmol/L Chloride 110 H (98-107) mmol/L Carbon Dioxide 24.0 (21.0-32.0) mmol/L Anion Gap 11.0 (3-11) mmol/L BUN 29 H (7-18) mg/dL Creatinine 1.2 H (0.55-1.02) mg/dL Est GFR (CKD-EPI 2020) 52.47 (mL/min/1.73m2) Glucose 184 H (74-106) mg/dL Calcium 8.5 (8.5-10.1) mg/dL Magnesium 1.8 (1.8-2.4) mg/dL Total Bilirubin 0.6 (0.2-1.0) mg/dL AST 13 L (15-37) U/L ALT 21 (14-59) U/L Alkaline Phosphatase 65 (46-116) U/L Troponin I 5 < 4 (<or=51) ng/L NT-Pro-B Natriuret Pep 25 (<300) pg/mL Total Protein 6.0 L (6.4-8.2) g/dL Albumin 3.4 (3.4-5.0) g/dL Lipase 39 (<78) U/L Cortisol Pending Urine Color Yellow (Yellow) Urine Clarity Clear (Clear) Urine pH 5.5 (5-8) Ur Specific [place] 1.015 (1.005-1.025) Urine Protein 100 H (Neg-Trace) mg/dL Urine Ketones Negative (Negative) mg/dL Urine Blood Trace-intact H (Negative) Urine Nitrite Negative (Negative) Urine Bilirubin Negative (Negative) Urine Urobilinogen 0.2 (Up to 0.2) mg/dL Ur Leukocyte Esterase Small H (Negative) Urine RBC 0-2 (0-2) HPF Urine WBC 10-20 H (0-5) HPF Ur Epithelial Cells Few (Negative) HPF Urine Crystals Negative (Negative) HPF Urine Bacteria Rare (Negative) HPF Urine Casts 0-2 Hyaline (Negative) LPF Urine Mucus Trace (Negative) Ur Culture Indicated? Yes Urine Glucose Negative (Negative) mg/dL 12/23/24 08:35 Blood Culture - Pending Blood 12/23/24 07:10 Blood Culture - Pending Blood 12/23/24 06:21 Urine Culture - Pending Urine - Reflex from Ua Intake and Output - 24 Hour Total 12/23/24 02:53 thru 12/23/24 10:42 Intake Total 2460 Output Total 550 Balance 1910 Weight 119.748 kg Intake: IV 2009 Oral 450 Output: Urine 550 Other: Urine Appearance Clear Comment voided independently in toilet # Voids 1 Falls Risk Assessment History of Falls No History 12/23/24 10:34 Contributing Factors Unstable 12/23/24 10:34 Ambulatory Aids Independent 12/23/24 10:34 Tubes/Lines W/no contributing factors 12/23/24 10:34 Gait Evaluation No gait disturbance 12/23/24 10:34 Cognition No cognitive impairment 12/23/24 10:34 Fall Total Score 13 12/23/24 10:34 Level of Risk Standard/Low Risk 12/23/24 10:34 Problems (Last Reviewed 12/23/24 @ 09:37 by Suman Hernandez) DVT prophylaxis (Acute) Acute kidney injury (Acute) Acute hypotension (Acute) v v v v v v v v v Sending and/or Receiving Nurses: Please use comment section below to note any information pertinent to the patient hand-off not included above. Information / Comments: Patient presnted to ER with dizzinss, Hypotention and itching all over body, A&O x4, incresed BP after 2 bolus of IVF in ER, pts color has improved, pt ambulates with out dizziness. LMB 12/23/24, 20G R hand, 18G LFA, Report received from: Hoa OJEDA in ER at [id number]
[2024-12-23 14:29] LABS: Anion Gap 8.5 mmol/L (3-11); BUN 17 mg/dL (7-18); CO2 25.5 mmol/L (21.0-32.0); CREATININE 0.8 mg/dL (0.55-1.02); Calcium 8.4 mg/dL (8.5-10.1); Chloride 111 mmol/L (98-107); Estimated GFR 85.35 (mL/min/1.73m2); Glucose 111 mg/dL (74-106); Potassium 4.2 mmol/L (3.5-5.1); Sodium 145 mmol/L (136-145)
[2024-12-23] MEDS: Melatonin 3 MG TAB PO (20:17)
[2024-12-23] MEDS: Atorvastatin 20 MG TAB PO (20:17)
[2024-12-24 03:00] VITALS: BP 136/80; PULSE 85; RESP 15; TEMP 36.8; O2SAT 94
[2024-12-24 07:49] LABS: Abs Immature Grans 0.01 10^3/uL (0.0-0.06); Absolute Basophil Count 0.03 10^3/uL (0.0-0.2); Absolute Eosinophil Count 0.19 10^3/uL (0.0-0.7); Absolute Lymphocyte Count 2.02 10^3/uL (1.2-3.4); Absolute Monocyte Count 0.35 10^3/uL (0.1-0.8); Absolute Neutrophil Count 2.67 10^3/uL (1.2-6.7); Basophils % 0.6 %; Eosinophils % 3.6 %; HCT 39.2 % (36.0-46.0); HGB 13.2 g/dL (11.2-15.7); Immature Grans % 0.2 %; Lymphocytes % 38.3 %; MCH 30.3 pg (27.0-33.0); MCHC 33.7 % (32.0-36.0); MCV 90 fL (80-95); Monocytes % 6.6 %; Neutrophils % 50.7 %; Platelet Count 170 10^3/uL (130-400); RBC 4.35 10^6/uL (3.93-5.22); RDW 13.7 % (11.7-14.6); RDW-SD 45.5 fL; WBC 5.27 10^3/uL (4.4-10.8)
[2024-12-24 07:55] VITALS: BP 135/86; PULSE 78; RESP 16; TEMP 36.4; O2SAT 94
[2024-12-24 08:06] LABS: BUN 14 mg/dL (7-18); CREATININE 0.6 mg/dL (0.55-1.02); Calcium 8.5 mg/dL (8.5-10.1); Chloride 112 mmol/L (98-107); Estimated GFR 103.98 (mL/min/1.73m2); Glucose 90 mg/dL (74-106); Potassium 3.9 mmol/L (3.5-5.1); Sodium 146 mmol/L (136-145)
[2024-12-24] MEDS: Enoxaparin 40 MG/0.4 ML SYR SC (09:33)
[2024-12-24 11:29] VITALS: BP 152/87; PULSE 77; RESP 17; TEMP 36.4; O2SAT 95
[2024-12-24] MEDS: Acetaminophen 500 MG TAB 1000 MG PO (12:16)
--- NOTE | 2024-12-24 13:24 | PHA.REVIEW2 ---
Pharmacy Admission Review Admission Clinical Review Admission Pharmacy Review: Flushing (Acute) DVT prophylaxis (Acute) Acute kidney injury (Acute) Acute hypotension (Acute) ropinirole Adverse Reaction (Intermediate, Verified 12/23/24 03:13) Nausea hydrocodone (Hydrocodone) Adverse Reaction (Unknown, Verified 12/23/24 03:13) itching Resuscitation Status Full Code Height 5 ft 6.5 in Weight 123.014 kg Pharmacy Admission Review Renal Dosing Renal Dosing: BUN 14 mg/dL (7-18) 12/24/24 06:20 Creatinine 0.6 mg/dL (0.55-1.02) 12/24/24 06:20 Medications needing adjustments: Reviewed (CrCl 137.91 mL/min) List of meds needing interventions: Current medications are okay Anticoagulation Anticoagulation: Hgb 13.2 g/dL (11.2-15.7) 12/24/24 06:20 Hct 39.2 % (36.0-46.0) 12/24/24 06:20 Plt Count 170 10^3/uL (130-400) 12/24/24 06:20 INR 1.1 (0.9-1.1) 12/23/24 03:25 Creatinine 0.6 mg/dL (0.55-1.02) 12/24/24 06:20 DVT Prophylaxis: Intervened (Changed dosing from daily to q12h due to BMI > 40) Medications: Enoxaparin (40mg q12h) Relevant Labs Relevant Labs: Sodium 146 mmol/L (136-145) H 12/24/24 06:20 Potassium 3.9 mmol/L (3.5-5.1) 12/24/24 06:20 Chloride 112 mmol/L (98-107) H 12/24/24 06:20 Magnesium 1.8 mg/dL (1.8-2.4) 12/23/24 03:25 Electrolytes, C-Reactive P, ESR: Reviewed Cardiac Review Cardiac Review: Troponin I 11 ng/L (<or=51) 12/23/24 07:10 NT-Pro-B Natriuret Pep 25 pg/mL (<300) 12/23/24 03:25 Blood Pressure 152/87 1129 Blood Pressure 135/86 0755 Blood Pressure 136/80 0300 BP, HR, EF%: Reviewed (BP WNL) QTc Review QTc: Reviewed (480 from 4/26/25) IV to PO Switch IV Medications: Reviewed Home Meds Home Med List reviewed: Reviewed Relevent Home Meds Not ordered & why?: losartan (on hold per H+P) and nitroglycerin (PRN) Current Meds Current Medication Order Review: Intervened Comments: Added 2nd PRN to albuterol order per pharmacy protocol
--- NOTE | 2024-12-24 15:26 | DSE_ITS ---
Date of service: 12/24/24 Time of Service: 15:26 DS: Diagnosis Discharge Diagnosis (1) Acute hypotension: Status: Acute (2) Acute kidney injury: Status: Acute (3) Flushing: Status: Acute (4) Asthma: (5) Hypokalemia: Status: Resolved (6) Obesity, class 3: (7) DVT prophylaxis: Status: Acute Discharge Plan Disposition Patient Disposition: Home Condition: Good Discharge Details Reason For Visit: hypotension, CARLOS Admit Date/Time: 12/23/24 08:53 Admit Provider: Suman Hernandez Attending Provider: Suman Hernandez Primary Care Provider: Britney Bond Hospital Course Hospital Course: Patient initially presented with acute transient hypotension that improved status post IV fluids in the emergency department. However, patient remains somewhat orthostatic after. She had no clear source of infection, signs of sepsis, and was not thought to be secondary to vagal as hypotension lasted hours after initial incident. Was also noted the patient had a history of elevated troponins in the setting of his severe C. difficile infection in May 2024 patient did have a follow-up stress test in June 2024 that was negative. While Adam patient had cortisol sent out as well as 24-hour urine episode as there was concern for carcinoid syndrome. Patient's symptoms ultimately resolved and she felt back to her baseline and was determined she was stable for discharge home. PCP follow-up: - 24-hour urine for 5-HIAA - Repeat electrolytes - Appropriate outpatient subspecialty referral based on urine results Home Meds and New Rx's Prescriptions: Continued atorvastatin 20 mg tablet 20 mg PO QHS Qty: 90 3RF losartan 100 mg tablet 100 mg PO DAILY Qty: 90 3RF melatonin 3 mg tablet 3 mg PO HS naproxen sodium [Aleve] 220 MG tablet 220 mg PO DAILY PRN Rx Instructions: for knee pain 1-2 x's weekly cgc albuterol sulfate 90 mcg/actuation HFA aerosol inhaler 2 puff inhalation Q6H PRN (Reason: shortness of breath or wheezing) Qty: 8.5 3RF mometasone 50 mcg/actuation spray,non-aerosol 2 spray NS BID Qty: 3 3RF Discontinued nitroglycerin 0.4 mg tablet, sublingual 0.4 mg sublingual Q5M PRN (Reason: chest pain) Qty: 30 0RF Rx Instructions: do not exceed 3 doses per episode Discharge Instructions Activity:: Activity as Tolerated Equipment/Supplies:: No Equipment Needed Diet:: As Tolerated Discharge Orders Discharge Orders: Discharge Order (Routine); Ordered 12/24/24 Ordered By: Alexei Cedeño DS: Summary Time Spent with Patient providing and/or coordinating discharge services: Greater than 30 minutes Status at Discharge Functional status at discharge: independent ambulation Overall status at discharge: patient is back to baseline Mental Status: mental status grossly normal Speech and Movement: speech and movement normal Mood: congruent mood Affect: normal affect Quality:SDOH Health Related Social Needs: No Data to Display Exam Narrative Exam Narrative: Well-appearing female sitting up in the edge of the bed in no acute distress, ANO x 4, heart regular rhythm, lungs good auscultation bilaterally, abdomen soft, nontender, nondistended Psych Mental Status: mental status grossly normal Speech and Movement: speech and movement normal Mood: congruent mood Affect: normal affect DS: Data Vitals/I&O Vitals and I&O: Vital Signs Temperature 97.5 F L 12/24/24 11:29 Temperature Source Temporal Artery Scan 12/24/24 11:29 Pulse 77 12/24/24 11:29 Pulse Rhythm Regular 12/23/24 10:34 Pulse 78 12/23/24 09:50 Respiratory Rate 17 12/24/24 11:29 Respiratory Effort Normal 12/23/24 10:34 Respiratory Depth Normal 12/23/24 10:34 Respiratory Pattern Normal 12/23/24 10:34 Blood Pressure 152/87 H 12/24/24 11:29 Blood Pressure Mean 99 12/23/24 09:01 Blood Pressure Position Supine 12/23/24 03:08 Pulse Oximetry 95 12/24/24 11:29 Oxygen Delivery Method Room Air 12/24/24 11:29 Oxygen Flow Rate 0 12/24/24 11:29 Pain Level 5 12/24/24 12:16 Comment nurse notified. 12/24/24 11:29 Intake & Output 12/23/24 12/24/24 12/24/24 17:59 05:59 17:59 Intake Total 2940 / 2940 20 / 2960 480 / 480 Output Total 850 / 850 1200 / 2050 1250 / 1250 Balance 2089 / 2089 -1180 / 910 -770 / -770 Weight 264 lb 271 lb 3.2 oz Intake: IV 2009 Oral 930 / 930 480 / 480 Output: Urine 850 / 850 1200 / 2050 1250 / 1250 Other: Urine Color Yellow Yellow Yellow Urine Appearance Clear Clear Clear Urine Odor None Normal Normal Comment voided independently in toilet Urine put into the container. # Voids 1 Data Completed and Pending Labs on day of discharge: Labs from last 24 hours 12/24/24 12/24/24 15:25 06:20 WBC 5.27 RBC 4.35 Hgb 13.2 Hct 39.2 MCV 90 MCH 30.3 MCHC 33.7 RDW 13.7 Plt Count 170 MPV 12.0 H Immature Gran % 0.2 Neutrophils % 50.7 Lymphocytes % 38.3 Monocytes % 6.6 Eosinophils % 3.6 Basophils % 0.6 Nucleated RBC % 0.0 Absolute Neutrophils 2.67 Absolute Lymphocytes 2.02 Absolute Monocytes 0.35 Absolute Eosinophils 0.19 Absolute Basophils 0.03 Sodium 146 H Potassium 3.9 Chloride 112 H Carbon Dioxide 25.0 Anion Gap 9.0 BUN 14 Creatinine 0.6 Est GFR (CKD-EPI 2020) 103.98 Glucose 90 Calcium 8.5 Ur Collection Duration Pending Urine Total Volume Pending Urine 5-HIAA 24 Hour Pending Preliminary micro results at discharge 12/23/24 08:35 Blood Culture - Preliminary Blood NO GROWTH 24 HOURS 12/23/24 07:10 Blood Culture - Preliminary Blood NO GROWTH 24 HOURS 12/23/24 06:21 Urine Culture - Preliminary Urine - Reflex from Ua Gram positive sakina, mixed Gram negative buck PFSH All Active Problems (Updated 12/23/24 @ 15:09 by Suman Hernandez) Flushing (Acute) DVT prophylaxis (Acute) Acute kidney injury (Acute) Acute hypotension (Acute) Shock (Acute) Myofascial pain on left side (Acute) Chronic left shoulder pain (Chronic) Primary osteoarthritis of left shoulder (Acute) Elevated troponin (Acute) Essential hypertension (Acute) Medical History C. difficile colitis Obesity, class 3 No-show for appointment Hyperlipidemia Left arm pain Impingement syndrome of left shoulder Bursitis of left shoulder Tendinitis of long head of biceps brachii of left shoulder Deltoid bursitis SARS-CoV-2 positive (02/25/22) Tubular adenoma of colon Complex tear of medial meniscus of right knee as current injury Steroid injection: 09/11/2022; 06/09/2021 Elevated blood pressure reading without diagnosis of hypertension Knee pain, right Restless legs (01/02/14) did not tolerate meds Obstructive sleep apnea syndrome (08/29/13) sleep study 08/09/13 Untreated, would not tolerate CPAP Non-seasonal allergic rhinitis (01/19/18) Iron deficiency (09/25/15) Impaired fasting blood sugar (09/25/15) Family history of diabetes mellitus (09/25/15) Asthma (12/20/12) Asthma Restless legs GEETHA (obstructive sleep apnea) Surgical History H/O arthroscopic knee surgery Colonoscopy - MAC (04/08/18) 11/2021 Family History Mother , ALS at age 51. No problems noted. Father Diabetes Essential hypertension COPD (chronic obstructive pulmonary disease) Asthma Social History Smoking/Tobacco Use Status: Never Second Hand Exposure: No Smoking risk assessment performed?: Yes Alcohol Intake: current Alcohol Intake frequency: holidays/special occasions only Alcohol type: wine Drug use: Never Substance use type: does not use Adopted: No Caregiver/Support person: No Foster care: No Household members: spouse Housing: house Number of Children: 4 number of grandchildren: 8 Communication Needs: None Education Level: high school Do you need help understanding health information?: Never 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 Pets and animals: Yes (1) Pets and animals: dog(s) Sexually active: Yes Do you think of yourself as: straight/heterosexual Current gender identity: female What is your relationship status?: How often do you talk on the phone with friends or family?: three or more times per week How often do you get together with friends or relatives?: three or more times per week Do you belong to any clubs or organized social groups?: no Panel score (0-1 are the most socially isolated patients): 2 Johanna/Yazidi: [employer] Special johanna needs: No Seatbelt use: always Helmet use: No (N/A) Drive intox or ride w/intox escort vehicle driver: No Do you feel safe at home: Yes Do you feel safe in your relationship?: Yes Time Spent with Patient Time Spent with Patient: <45 minutes Time was spent: preparing to see the patient(eg.review tests), obtaining and/or reviewing separately otained hiistory, ordering medications,tests, procedures, referring, communicating with other health pet care technician, indepentently interpreting results, counseling the patient and care coordination
[2024-12-24 15:44] VITALS: BP 144/86; PULSE 70; RESP 20; TEMP 36.8; O2SAT 95
[2024-12-27 13:00] LABS: 5-Hydroxyindoleacetic Acid, U 8.4 mg/24 h (<=8.3); Urine Volume 3100 mL
== END 2024-12-24 16:13 | disposition home or self-care (01) ==
LOC: ER 09:43 → MS 10:07
PROVIDERS: Student in an Organized Health Care Education/Training Program; Admitting Provider Family Medicine; Emergency Provider Emergency Medicine; PCP Family Medicine; Responsible Provider Family Medicine; Visit Provider Family Medicine
DX: N17.9 Acute kidney failure, unspecified (principal); I95.9 Hypotension, unspecified; R23.2 Flushing; J45.20 Mild intermittent asthma, uncomplicated; E87.6 Hypokalemia; E66.813 Obesity, class 3; Z68.41 Body mass index [BMI] 40.0-44.9, adult; R74.8 Abnormal levels of other serum enzymes; M19.012 Primary osteoarthritis, left shoulder; I10 Essential (primary) hypertension; E78.5 Hyperlipidemia, unspecified; G25.81 Restless legs syndrome; G47.33 Obstructive sleep apnea (adult) (pediatric); E61.1 Iron deficiency; R73.01 Impaired fasting glucose; I25.2 Old myocardial infarction
CPT/HCPCS: 00123; 36415; 71275; 80048; 80053; 82533; 82805; 83690; 87040; 93005; 93270; 96360; 96372; 99291; J1650; 71046; 81003; 81015; 81050; 83497; 83605; 83735; 83880; 84484; 85025; 85379; 85610; 85730; 87086; 93010; 99222; 99239; G0378; J3490

== ENCOUNTER 2025-01-23 12:45 | Outpatient (CLI) | payer BC, SELFPAY ==
--- NOTE | 2025-01-23 13:03 | W.CARDEVENT ---
Date of service: 01/23/25 Time of Service: 13:03 Cardiac Event Recorder Referring Provider:: Alexei Cedeño Indications:: Hypotension Cardiac Event Note: This is a cardiac event monitor. Patient was monitored for 16 days and 1 hour Rhythm throughout was sinus with an average heart rate of 79. Minimum was 59, maximum was 165 There were no ventricular or supraventricular dysrhythmias recorded There was no high-grade AV block, no pauses greater than 3 seconds. There were no apparent patient's symptoms
== END 2025-01-23 12:46 | disposition home or self-care (01) ==
LOC: CARDOPNVT 12:45
PROVIDERS: PCP Family Medicine; Visit Provider Internal Medicine Cardiovascular Disease
DX: I95.9 Hypotension, unspecified (principal)
CPT/HCPCS: 93272; 93270

== ENCOUNTER 2025-03-19 16:55 | Outpatient (CLI) | payer OTHER, SELFPAY ==
[2025-03-19 17:59] LABS: ALT 24 U/L (14-59); AST 12 U/L (15-37); Albumin 4.1 g/dL (3.4-5.0); Alkaline Phosphatase 79 U/L (46-116); Bilirubin, Direct 0.1 mg/dL (0.0-0.2); Bilirubin, Total 0.8 mg/dL (0.2-1.0); TSH (W/Ref FT4) 1.89 uIU/mL (0.36-3.74); Total Protein 7.3 g/dL (6.4-8.2)
[2025-03-19 18:09] LABS: C-Reactive Protein < 0.50 mg/dL (<or=0.5)
== END 2025-03-19 16:56 | disposition home or self-care (01) ==
LOC: LBO 16:56
PROVIDERS: PCP Family Medicine; Visit Provider Physician Assistant Medical
DX: R19.7 Diarrhea, unspecified (principal)
CPT/HCPCS: 36415; 80076; 82784; 86364; 84443; 86140

== ENCOUNTER 2025-03-21 16:54 | Outpatient (REF) | payer OTHER, SELFPAY ==
--- NOTE | 2025-03-21 16:23 | PAPFT_PTH ---
PATIENT: Trish Conroy LOC: [facility] U#:[id number] AGE/SX: 60/F ROOM: RE03/21/[address]: Britney Bond : 1965 BED: DIS: 03/21/2025 SPEC #: [id number] RECD: 03/22/25 13:13 STATUS: SUMAN REQ #: [id number] RAY: 03/21/25 16:[address]: Britney Bond DEPT: [facility] Cytology RECD BY: Madisyn Saul Tissues: 1 - CX/ENDOCX FOR PAP SMEARS Procedures: PAP THIN PREP/UVM Screening HPV DNA PROBE Comments: [id number] (HPV 16 & 18/45)
== END 2025-03-21 16:55 | disposition home or self-care (01) ==
LOC: LBN 16:54
PROVIDERS: PCP Family Medicine; Visit Provider Family Medicine
DX: Z11.51 Encounter for screening for human papillomavirus (HPV) (principal); Z01.419 Encounter for gynecological examination (general) (routine) without abnormal findings
CPT/HCPCS: 80061; 88142; 87624

== ENCOUNTER 2025-05-03 17:31 | Emergency (ER) | payer OTHER, SELFPAY ==
[2025-05-03 17:35] VITALS: BP 135/92; PULSE 92; RESP 17; TEMP 36.5; O2SAT 94
== END 2025-05-03 19:10 ==
PROVIDERS: PCP Family Medicine
DX: Z53.21 Procedure and treatment not carried out due to patient leaving prior to being seen by health care provider (principal)

== ENCOUNTER 2025-08-24 04:06 | Emergency (ER) | payer OTHER, SELFPAY ==
[2025-08-24] VITALS (16 sets, daily range): BP systolic 128–172; BP diastolic 60–135; PULSE 71–88; RESP 11–19; TEMP 36.3; O2SAT 93–97
--- NOTE | 2025-08-24 04:15 | RT.EKG_ITS ---
APPROVED REPORT Exam: Resting ECG Reason for Exam: vomiting Patient Location: E HR:77 bpm ECG Measurements Heart Rate 77 AXIS ME 177 P 66 QRSd 93 QRS -50 QT 403 T 41 QTc 455 Conclusion Sinus rhythm...normal P axis, V-rate 60- 99 Left anterior fascicular block...axis(240,-40), init forces inf Physician: No STEMI
--- NOTE | 2025-08-24 04:21 | W.ED.GENAD ---
Discharge Plan Disposition Patient Disposition: Home Condition: Good Discharge Details Clinical Impression: Mast cell activation Primary Care Provider: Britney Bond ED Provider: Maikel Colon Home Meds and New Rx's Prescriptions: New epinephrine [EpiPen 2-Froylan] 0.3 mg/0.3 mL auto-injector 0.3 mg IJ PRN PRNQty: 2 5RF No Action losartan 100 mg tablet 100 mg PO DAILY Qty: 90 3RF melatonin 3 mg tablet 3 mg PO HS naproxen sodium [Aleve] 220 MG tablet 220 mg PO DAILY PRN Rx Instructions: for knee pain 1-2 x's weekly cgc mometasone 50 mcg/actuation spray,non-aerosol 2 spray NS BID Qty: 3 3RF atorvastatin 20 mg tablet 20 mg PO QHS Qty: 90 3RF albuterol sulfate 90 mcg/actuation HFA aerosol inhaler 2 puff inhalation Q6H PRN (Reason: shortness of breath or wheezing) Qty: 8.5 3RF Discharge Instructions Instructions: Allergic Reaction ED Additional Instructions: At this time your initial symptoms appear to be consistent with an atypical type of allergic reaction or something called mast cell degranulation syndrome. Your symptoms notably resolved after the epinephrine given by EMS, and you have remained quite stable here. Please take [id number] 10 mg loratadine daily for the next 2 to 3 days. Take Benadryl as needed if you notice any swelling returning. If you do have any concerning symptoms of swelling, rash, or vomiting or diarrhea please return immediately for reassessment. As an extra safety precaution we have sent you home with a prescription for epinephrine. We do not recommend using this unless you develop significant swelling in your mouth or tongue, feelings of difficulty breathing, or feelings like you are going to pass out. If you notice any worsening of your symptoms, or any new symptoms such as vomiting, diarrhea, fever, chills, shortness of breath, chest pain, numbness, weakness, or fainting , please return immediately to the emergency department for reevaluation. Please follow up with your primary care provider as soon as possible for reassessment and reevaluation. As always, it was a pleasure participating in your medical care today. Stand Alone Forms: Portal Information Referrals: Britney Bond MD [Primary Care Provider, Medicine] [facility] General Date/Time Provider Initiated Documentation: 08/24/25 04:15. HPI Narrative: This is a pleasant 60-year-old female with a past family history of multiple family members having allergies for which the carry EpiPen's, and a past medical history of asthma, hypertension, high cholesterol, obstructive sleep apnea, obesity, with previous unexplained episodes of allergic reaction/hypotension, who presents today for evaluation of nausea vomiting diarrhea and atypical symptoms. Patient states that she ate dinner this evening, and ate more than she normally would. (She feels this is often a precipitating factor) at around 1:30 AM she noticed symptoms of nausea vomiting and diarrhea, she also developed tingling in her hands and fingers, and swelling in her lips and mouth. When EMS arrived they gave 0.5 mg of epinephrine IM, and brought the patient to the emergency department. Patient states that she felt significantly improved after this. She denies any chest pain, shortness of breath, abdominal pain, hematemesis, or other complaints. She denies any ingestion of atypical nuts, or food. Related Data Home Medications ?Medication ?Instructions ?Recorded ?Confirmed naproxen sodium 220 mg tablet 220 mg PO DAILY PRN 11/20/13 06/06/25 (Aleve) melatonin 3 mg tablet 3 mg PO HS 05/13/21 06/06/25 losartan 100 mg tablet 100 mg PO DAILY #90 tabs 08/08/24 06/06/25 mometasone 50 mcg/actuation nasal 2 spray NS BID #3 multiple units 09/22/24 06/06/25 spray atorvastatin 20 mg tablet 20 mg PO QHS #90 tabs 01/23/25 06/06/25 albuterol sulfate 90 mcg/actuation 2 puff inhalation Q6H PRN 03/28/25 06/06/25 aerosol inhaler shortness of breath or wheezing #8.5 grams epinephrine 0.3 mg/0.3 mL 0.3 mg (0.3 mL) IJ PRN PRN #2 ea 08/24/25 injection, auto-injector (EpiPen 2-Froylan) Previous Rx's ?Medication ?Instructions ?Recorded losartan 100 mg tablet 100 mg PO DAILY #90 tabs 08/08/24 mometasone 50 mcg/actuation nasal 2 spray NS BID #3 multiple units 09/22/24 spray atorvastatin 20 mg tablet 20 mg PO QHS #90 tabs 01/23/25 albuterol sulfate 90 mcg/actuation 2 puff inhalation Q6H PRN 03/28/25 aerosol inhaler shortness of breath or wheezing #8.5 grams epinephrine 0.3 mg/0.3 mL 0.3 mg (0.3 mL) IJ PRN PRN #2 ea 08/24/25 injection, auto-injector (EpiPen 2-Froylan) Allergies Allergy/AdvReac Type Severity Reaction Status Date / Time ropinirole AdvReac Intermediate Nausea Verified 06/06/25 12:56 hydrocodone (Hydrocodone) AdvReac Unknown itching Verified 06/06/25 12:56 General Stated Complaint: Allergic KM: 3 Exam Narrative Exam Narrative: 1.Const: Well-nourished, Well-developed, appearing stated age 2.Eyes: PERRL, no conjunctival injection, and symmetrical lids. 3.ENT: Atraumatic external nose and ears. Moist MM. Neck: Symmetric, trachea midline, No thyromegaly. No evidence of angioedema, lip swelling, or other abnormality. 4.CVS: +S1/S2, Peripheral pulses 2+ and equal in all extremities. Brisk capillary refill in all extremities. 5.RESP: Unlabored respiratory effort. Clear to auscultation bilaterally. No wheezes rales or rhonchi 6.GI: Soft, Nontender/Nondistended, No hepatosplenomegaly. No guarding or rebound. 7.MSK: Normocephalic/Atraumatic, Extremities w/o deformity or ttp No cyanosis or clubbing, Normal movement of all extremities 8.Skin: Warm, Dry. No rashes or lesions. 9.Neuro: surgeon's assistant II-XII grossly intact. Sensation grossly intact, no focal neurologic deficits. 10.Psych: (AAO) x3. Appropriate mood and affect Course Vital Signs Vital signs: Vital Signs Temperature 36.3 C L 08/24/25 04:07 Pulse 83 08/24/25 04:07 Respiratory Rate 17 08/24/25 04:07 Blood Pressure 172/135 H 08/24/25 04:07 Pulse Oximetry 95 08/24/25 04:07 Temperature 36.3 C L 08/24/25 04:07 Temperature Source Oral 08/24/25 04:07 Pulse 83 08/24/25 04:07 Respiratory Rate 17 08/24/25 04:07 Blood Pressure 172/135 H 08/24/25 04:07 Blood Pressure Position Supine 08/24/25 04:07 Pulse Oximetry 95 08/24/25 04:07 Oxygen Delivery Method Room Air 08/24/25 04:07 Oxygen Flow Rate 0 08/24/25 04:07 Pain Level 0 08/24/25 04:07 Medical Decision Making This is a pleasant 60-year-old female with a past family history of multiple family members having allergies for which the carry EpiPen's, and a past medical history of asthma, hypertension, high cholesterol, obstructive sleep apnea, obesity, with previous unexplained episodes of allergic reaction/hypotension, who presents today for evaluation of nausea vomiting diarrhea and atypical symptoms. Patient states that she ate dinner this evening, and ate more than she normally would. (She feels this is often a precipitating factor) at around 1:30 AM she noticed symptoms of nausea vomiting and diarrhea, she also developed tingling in her hands and fingers, and swelling in her lips and mouth. When EMS arrived they gave 0.5 mg of epinephrine IM, and brought the patient to the emergency department. Patient states that she felt significantly improved after this. She denies any chest pain, shortness of breath, abdominal pain, hematemesis, or other complaints. She denies any ingestion of atypical nuts, or food. Exam demonstrates well-appearing female, no signs of anaphylaxis at this time, vital signs stable, she looks notably improved compared to when EMS picked her up. We will give Solu-Medrol, Benadryl, observe for rebound reaction, rehydrate, monitor closely and reassess. Differential is high for mast cell degranulation syndrome, less likely anaphylaxis from a specific food Plan 6:30 AM On reassessment patient feels well, symptoms have completely resolved. No evidence of rebound anaphylaxis. Laboratory workup stable, troponins normal. Lipase normal. Patient feels well and would like to go home. Suspect symptoms are reflective of either a mild allergy, potential mild mast cell degranulation syndrome, or histaminic like reaction. Out of an abundance of precaution we will send home with a prescription for EpiPen's, however her recommendations will be for continued fluids loratadine and Benadryl if needed. Patient stable for discharge. No evidence of anaphylaxis or other life-threatening etiology at this time. I have extensively reviewed the treatment plan and discharge instructions with the patient and their family. I have addressed all patient concerns at this time. The patient and family was made aware of what symptoms to monitor for that would warrant a return to the emergency department. Discussed the plan with the patient and family, they demonstrate verbal understanding and agreement with our assessment and plan at this time. The documentation in this chart was dictated using [employer] dictation software. Please excuse any dictation errors. PFSH All Active Problems (Updated 08/24/25 @ 05:57 by Maikel Colon DO) Mast cell activation (Acute) Class 2 severe obesity due to excess calories with serious comorbidity and body mass index (BMI) of 37.0 to 37.9 in adult (Acute) Hypotensive episode (Chronic) episodes with itching first, then hypotension; preceded with eating fried food each time. Hyperlipidemia (Acute) Obstructive sleep apnea syndrome (Chronic 08/29/13) sleep study 08/09/13 Untreated, would not tolerate CPAP Asthma (Chronic 12/20/12) Myofascial pain on left side (Acute) Chronic left shoulder pain (Chronic) Primary osteoarthritis of left shoulder (Acute) Essential hypertension (Acute) Medical History (Updated 08/24/25 @ 05:57 by Maikel Colon DO) Parapelvic renal cyst Shock elev 5-HIAA urine test C. difficile colitis (~02/2024) felt to be colonized. Complex tear of medial meniscus of right knee as current injury Steroid injection: 09/11/2022; 06/09/2021 Knee pain, right Restless legs (01/02/14) did not tolerate meds Non-seasonal allergic rhinitis (01/19/18) Iron deficiency (09/25/15) Impaired fasting blood sugar (09/25/15) Family history of diabetes mellitus (09/25/15) Tubular adenoma of colon Deltoid bursitis Left arm pain Tendinitis of long head of biceps brachii of left shoulder Bursitis of left shoulder Impingement syndrome of left shoulder Surgical History (Updated 06/06/25 @ 12:58 by Britney Bond MD) History of laparoscopic appendectomy (~04/2025) H/O arthroscopic knee surgery Colonoscopy - MAC (04/08/18) 11/2021 Family History (Updated 01/08/25 @ 16:09 by Danna Gill RN) Mother , ALS at age 51. ALS (amyotrophic lateral sclerosis) Father , age 91 Diabetes Essential hypertension COPD (chronic obstructive pulmonary disease) Asthma CHF (congestive heart failure) Brother , 51 yo Suicide Brother No problems noted. 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 Pets and animals: Yes (1) Pets and animals: dog(s) Sexually active: Yes Do you think of yourself as: straight/heterosexual Current gender identity: female What is your relationship status?: How often do you talk on the phone with friends or family?: three or more times per week How often do you get together with friends or relatives?: three or more times per week How often do you attend religion or sikhism services?: 1-3 times per year Do you belong to any clubs or organized social groups?: no Panel score (0-1 are the most socially isolated patients): 2 NHANES result reviewed/action taken: Yes Duration: 15-30 minutes/day Frequency: 5-6 times per week Johanna/Mormonism: [employer] Special johanna needs: No Agree to transfusion: Yes Seatbelt use: always Helmet use: Yes Helmet use: always Drive intox or ride w/intox dray driver: No Working smoke detector in home: Yes Carbon monox detector in home: Yes Firearms in home: Yes Firearms unloaded and locked: Yes Do you feel safe at home: Yes Do you feel safe in your relationship?: Yes Victim of physical abuse: No Victim of emotional abuse: No Victim of sexual abuse: No Would you like helpful sources: No
[2025-08-24] MEDS: Normal Saline 1,000 ML 1000 ML IV (04:50)
[2025-08-24] MEDS: diphenhydrAMINE 50 MG/ML VIAL 25 MG IVP (04:51)
[2025-08-24] MEDS: Ondansetron 4 MG/2 ML VIAL IVP (04:52)
[2025-08-24] MEDS: methylPREDNISolone SUCC 125 MG VIAL IVP (04:53)
[2025-08-24] MEDS: Loratidine 10 MG TAB PO (04:53)
[2025-08-24 05:09] LABS: Abs Immature Grans 0.04 10^3/uL (0.0-0.06); HCT 40.8 % (36.0-46.0); HGB 13.1 g/dL (11.2-15.7); Immature Grans % 0.3 %; MCH 29.3 pg (27.0-33.0); MCHC 32.1 % (32.0-36.0); MCV 91 fL (80-95); MPV 11.3 fL (8.0-11.0); Platelet Count 172 10^3/uL (130-400); RBC 4.47 10^6/uL (3.93-5.22); RDW 13.7 % (11.7-14.6); RDW-SD 46.1 fL; WBC 12.24 10^3/uL (4.4-10.8)
[2025-08-24 05:26] LABS: Troponin I 8 ng/L (<35)
[2025-08-24 05:28] LABS: Lipase 33 U/L (<53)
[2025-08-24 05:30] LABS: ALT 17 U/L (10-49); AST 15 U/L (<34); Albumin 3.7 g/dL (3.2-5.0); Alkaline Phosphatase 76 U/L (46-116); Anion Gap 8.5 mmol/L (3-11); BUN 21 mg/dL (9-23); Bilirubin, Total 0.7 mg/dL (0.2-1.2); CO2 26.5 mmol/L (20.0-31.0); Calcium 8.3 mg/dL (8.3-10.6); Chloride 108 mmol/L (98-107); Glucose 117 mg/dL (74-106); Potassium 3.3 mmol/L (3.5-5.1); Sodium 143 mmol/L (136-145); Total Protein 5.8 g/dL (5.7-8.2)
== END 2025-08-24 07:01 | disposition home or self-care (01) ==
PROVIDERS: Emergency Provider Student in an Organized Health Care Education/Training Program; PCP Family Medicine
DX: D89.40 Mast cell activation, unspecified (principal); R11.2 Nausea with vomiting, unspecified; R19.7 Diarrhea, unspecified; R22.0 Localized swelling, mass and lump, head
CPT/HCPCS: 36415; 80053; 83690; 93005; 96361; 96374; 96375; 99284; 84484; 85025; 93010; J1200; J2405; J2919